=== PATIENT | female | born 1975 | race Caucasian/White ===

== ENCOUNTER 2016-05-23 21:39 | Observation (INO) ==
--- NOTE | 2016-05-23 21:58 | Emergency Department Note ---
Disposition Clinical Impression: Accelerated hypertension Disposition: Admitted As Inpatient Condition: Fair Time of Disposition: 23:28 Chest Pain HPI - General Chief Complaint: ED Chest Pain Stated Complaint: High Blood pressure Time Seen by Provider: 05/23/16 21:55 Source: patient Limitations: no limitations Vital Signs Reviewed: Yes Nursing Notes Reviewed: Yes - History of Present Illness HPI Narrative: 41-year-old female history of hypertension, morbid obesity, takes Norvasc, losartan, Aldactone, diuretic, multiple medications for blood pressure, she presents with elevated blood pressure 240/110. Patient was evaluated at the emergency department yesterday for the same complaints, she also reports chest pain, chest social shortness of breath, currently 4 out of 10, mild frontal headache bilaterally. 5 out of 10. She states that her symptoms have not improved since going home. Her ED workup yesterday included head CT that was negative, CT of chest, lab work up including troponin and EKG that were essentially unremarkable. Patient was discharged home yesterday in stable condition by Dr. Emanuel. Patient essentially states that her hypertension is chronic under control currently. She does have cardiology and nephrology follow -ups, she has been seen by Dr. Mittal in outpatient setting and he is currently working her up for hypertension, primary care physician is Dr. Lucian Phan, she cirrhosis E nephrology and a few more weeks for reevaluation. Earlier no changes in her medical management. Pt complaint: chest pain Onset (ago): day(s) (3) Duration: intermittent Onset: during rest Pain Location: substernal Severity: mild Severity scale (1-10): 2 Pain Radiation: none Improves with: nothing Worsens with: nothing Associated symptoms: Reports: nausea, other (Headache). Denies: vomiting, diaphoresis - Related Data Home Medications Medication Instructions Recorded Confirmed Albuterol Sulfate [Albuterol 1 - 2 puff IH Q4HR PRN 08/31/15 03/28/16 Inhaler] ClonazePAM [Klonopin] 0.5 mg PO BID PRN 08/31/15 03/28/16 Losartan/Hydrochlorothiazide 1 tab PO DAILY 08/31/15 03/28/16 [Hyzaar 100-25 Tablet] Torsemide [Demadex] 10 mg PO DAILY PRN 08/31/15 03/28/16 Amlodipine [Norvasc] 5 mg PO DAILY 02/05/16 03/28/16 Cholecalciferol (Vitamin D3) 10,000 unit PO DAILY 02/05/16 03/28/16 [Vitamin D3] Metoprolol XL (24 HR) Succ [Toprol 200 mg PO DAILY #0 02/05/16 03/28/16 Xl] Spironolactone [Aldactone] 25 mg PO DAILY 02/05/16 03/28/16 Estradiol [Estrace] 1 mg PO DAILY 03/03/16 03/28/16 Previous Rx's Medication Instructions Recorded HydrALAZINE 25 mg PO Q8HR #90 tablet 02/06/16 Allergies Allergy/AdvReac Type Severity Reaction Status Date / Time morphine Allergy Anaphylaxis Verified 03/28/16 13:07 [id number] [From Nubain] Allergy Anaphylaxis Verified 03/28/16 13:07 Trimethobenzamide Allergy Anaphylaxis Verified 03/28/16 13:07 [From Tigan] Review of Systems: A 14 point ROS was obtained and was negative except as per below or as documented in the HPI. Constitutional: Denies: fever, chills, weakness, weight change Eyes: Denies: eye pain, eye discharge, vision change ENT: Denies: ear pain, throat pain, hearing loss, epistaxis, congestion, Cardiovascular: chest pain Denies:, palpitations, dyspnea on exertion, edema, syncope Respiratory: Denies: cough, dyspnea, wheezes, hemoptysis, stridor Gastrointestinal: Denies: abdominal pain, nausea, vomiting. diarrhea, constipation, hematemesis, hematochezia Genitourinary: Denies: urgency, dysuria, frequency, hematuria Musculoskeletal: Denies: back pain, neck pain, arthralgia, myalgia Integumentary: Denies: rash, abrasion, lesions Neurological: headache, Denies: weakness, numbness, paresthesias, confusion, abnormal gait Psychiatric: Denies: anxiety, depression, suicidal thoughts, homicidal thoughts , Endocrine: Denies: fatigue Hematological/Lymphatic: Denies: easy bleeding, easy bruising Allergic/Immunologic: Denies: facial swelling, urticaria All systems ED: reviewed and negative except as stated. Chest Pain PMH - Past Medical History Medical history: Reports: asthma, hypertension Surgical history: Reports: hysterectomy Psychiatric history: Reports: anxiety TALENT MANAGEMENT SPECIALIST history: Reports: no TALENT MANAGEMENT SPECIALIST history - Social History Smoking Status: Never smoker Alcohol use: Reports: none Drug use: Reports: none Physical Exam General: alert and oriented, in NAD, Head: NCAT, no lesions Eyes: sclera anicteric, conjunctiva normal, PERRLA bilaterally, EOMI Bilaterally Ears: normal inspection, external ear wnl Nose: nasal septum nondeviated, sinuses nontender Throat: good dentition, mucous membranes moist Neck: no lymphadenopathy, trachea midline no deviation, no JVD Resp: CTA bilaterally, no resp distress, symmetric chest rise, no wheezes, rales , or rhonchi bilaterally CV: RRR, normal S1 and S2, no m/g/r, Pulses +2 Rad, +2 DP/PT Abdomen: Morbidly obese Soft, NTND, no hepatosplenomegaly, no hernias, Negative Rovsing's sign, Negative Appiah's sign Back: normal inspection, no tenderness to palpation, Negative CVA tenderness bilaterally Neuro: A&O3, CN II-XII grossly intact bilaterally, no motor or sensory deficits bilaterally, gait normal, GCS 15 [id number] Ext: normal inspection, symmetric Active and Passive ROM UE and LE bilaterally , no pedal edema bilaterally Psych: anxious Skin: No rashes, skin warm, dry, intact - General Limitations: no limitations General appearance: alert, in no apparent distress Course Course Narrative: Morbid obese female in no acute distress, she does appear very anxious, her blood pressures to 50 systolic, will try IV hydralazine and will try IV labetalol,. Her blood pressure somewhat under control with 25% reduction, likely the patient will be admitted this hospitalization secondary to refractory hypertension despite medical management workup yesterday which was negative, in the setting of previous admissions for hypertensive emergency, patient does have symptoms with headache and chest pain, EKG is unremarkable lab work is being repeated, will reassess. I did review Dr. Mittal's note, and outpatient setting order Plasmanate metanephrines were negative, he thought that her hypertension was due to CPAP noncompliance and anxiety component, and does improve after she is compliant with her medications. - Reevaluation(s) Reevaluation #1: BP 196/71 HR 70 after labetolol and Hydralazine in ED<stills= symptomatic with GARCIA and CHest pain, admitted to hospitalist service Dr guzmán accepting stable at time of admission. Time: 23:29 Vital Signs Temperature 97.2 F L 05/23/16 21:42 Pulse Rate 74 05/23/16 21:42 Respiratory Rate 18 05/23/16 21:42 Blood Pressure 210/145 05/23/16 21:42 O2 Sat by Pulse Oximetry 100 05/23/16 21:42 Temperature 97.2 F L 05/23/16 21:42 Pulse Rate 79 05/23/16 22:27 Respiratory Rate 16 05/23/16 22:27 Blood Pressure 193/96 05/23/16 22:27 O2 Sat by Pulse Oximetry 100 05/23/16 22:27 Oxygen Delivery Oxygen Delivery Room Air Chest Pain - MDM Narrative Medical decision making narrative: 41-year-old female with accelerated hypertension, admitted to hospitalist service Dr. Guzmán accepting patient's stable condition at time of admission - Differential Diagnosis Likely: fracture of rib, pneumothorax, stable angina, unstable angina pectoris, atypical chest pain, st elevation myocardial infraction - Medical Records Medical records reviewed: Yes I reviewed the patient's medical records. - Lab Data Lab results reviewed: Yes I reviewed the patient's lab results. Result diagrams: 05/23/16 22:06 05/23/16 22:06 Lab Results 05/23/16 05/23/16 05/23/16 Range/Units 22:06 22:06 22:06 WBC 9.1 (4.3-11.1) K/mcL RBC 4.30 (3.82-4.97) M/mcL Hgb 12.1 (11.5-15.4) g/dL Hct 36.2 (35.3-44.9) % MCV 84.2 (83.0-100.0) fL MCH 28.1 (28.0-33.3) pg MCHC 33.4 (31.6-35.5) g/dL RDW 14.6 H (11.5-14.5) % Plt Count 319 (140-400) K/mcL MPV 9.5 (9.4-12.4) fL Immature Gran % 0.5 (0-4) % Seg Neutrophils % 64.5 % Lymphocytes % 25.8 % Monocytes % 5.9 % Eosinophils % 2.6 % Basophils % 0.7 % Neutrophils # 5.9 (1.6-8.9) K/mcL Lymphocytes # 2.4 (0.6-4.6) K/mcL Monocytes # 0.5 (0.0-1.3) K/mcL Eosinophils # 0.2 (0.0-0.6) K/mcL Basophils # 0.1 (0.0-0.2) K/mcL Sodium 138 (136-145) mEq/L Potassium 3.4 L (3.5-4.5) mEq/L Chloride 107 (98-109) mEq/L Carbon Dioxide 23 (19-29) mEq/L BUN 6 L (7-20) mg/dL Creatinine 0.73 (0.57-1.11) mg/dL Est GFR ( Amer) > 60 (> 60) Est GFR (Non-Af Amer) > 60 (> 60) BUN/Creatinine Ratio 8 (6-26) Glucose 92 (70-99) mg/dL Calculated Osmolality 283 (280-300) Calcium 9.1 (8.6-10.8) mg/dL Troponin I 0.00 (0-0.03) ng/mL - Radiology Data Radiology results reviewed: Yes I reviewed the patient's radiology results. Chest X-Ray 05/23/16 21:56 IMPRESSION: 1. No active pulmonary disease. 2. Stable cardiomegaly. D/ / Jose Reed MD / Jose Reed MD Interpreting Provider: Jose Reed MD - EKG Data EKG attestation: Yes I reviewed and interpreted this EKG. EKG shows normal: sinus rhythm (69 bpm) Rate: normal Rhythm: NSR Garibaldi/QRS: normal Q waves: III Interpretation: no acute changes (No acute changes from previous EKG in April 2016, inferior Q-wave is present on the previous EKG.) - Core Measures AMI Core Measures Followed: No Measure Exclusions: not indicated Heart Score - Score History: Slightly Suspicious EKG: Normal Age: Less than 45 Risk Factors: 1-2 risk factors Troponin: Less than normal limit HEART Score Total: 1 Attestation Statement - Attestation Attestation: IBrenden MD, personally performed a history and physical exam of the patient and discussed their management with the resident. I reviewed the resident's note and agree with the documented findings, medical decision making , and plan of care. 41-year-old female with history of severe hypertension presents to the emergency department with a complaint of uncontrolled hypertension. She complains of some chest pain and shortness of breath. She also complains of some headache. She is on multiple medications. She has been admitted to the hospital previously for her blood pressure. She was just seen here yesterday for the same problem. On examination patient is a well-developed obese female in no acute distress. She is alert and oriented 3. There is no cyanosis or diaphoresis. Breath sounds are clear and equal bilaterally. Heart regular rate and rhythm. Abdomen soft and nontender with normal bowel sounds. No gross focal neurological deficits. No acute changes on EKG and unchanged from prior EKG. Chest x-ray shows stable cardiomegaly otherwise no active disease. Labs reviewed. The hospitalist, Dr. Guzmán, was consulted and accepted admission of the patient.
[2016-05-23 22:13] LABS: Basophils # 0.1 K/mcL (0.0-0.2); Basophils % 0.7 %; Eosinophils # 0.2 K/mcL (0.0-0.6); Eosinophils % 2.6 %; Hematocrit 36.2 % (35.3-44.9); Hemoglobin 12.1 g/dL (11.5-15.4); Immature Granulocytes % 0.5 % (0-4); Lymphocytes # 2.4 K/mcL (0.6-4.6); Lymphocytes % 25.8 %; Mean Corpuscular HGB Conc 33.4 g/dL (31.6-35.5); Mean Corpuscular Hemoglobin 28.1 pg (28.0-33.3); Mean Corpuscular Volume 84.2 fL (83.0-100.0); Mean Platelet Volume 9.5 fL (9.4-12.4); Monocytes # 0.5 K/mcL (0.0-1.3); Monocytes % 5.9 %; Neutrophils # 5.9 K/mcL (1.6-8.9); Platelet Count 319 K/mcL (140-400); Red Cell Distribution Width 14.6 % (11.5-14.5); Segmented Neutrophils % 64.5 %
[2016-05-23 22:26] LABS: BUN/Creatinine Ratio 8 (6-26); Blood Urea Nitrogen 6 mg/dL (7-20); Calcium 9.1 mg/dL (8.6-10.8); Carbon Dioxide 23 mEq/L (19-29); Chloride 107 mEq/L (98-109); Glucose 92 mg/dL (70-99); Osmolality,Calculated 283 (280-300); Potassium 3.4 mEq/L (3.5-4.5); Sodium 138 mEq/L (136-145); eGFR For African Americans > 60 (> 60); eGFR For Non-African Americans > 60 (> 60)
[2016-05-23] MEDS ORDERED: *HR* Labetalol 20 MG/4 ML SYRINGE IVP ONE (22:48)
[2016-05-23] MEDS ORDERED: clonazePAM 0.5 MG TABLET PO PRN (23:24)
[2016-05-23] MEDS ORDERED: Torsemide 20 MG TABLET PO PRN (23:24)
[2016-05-23] MEDS ORDERED: Acetaminophen 325 MG TABLET PO PRN (23:29)
[2016-05-23] MEDS ORDERED: Ondansetron 4 MG/2 ML VIAL IVP PRN (23:29)
[2016-05-23] MEDS ORDERED: *HR* OxyCODONE Immed Rel 5 MG TABLET PO PRN (23:29)
[2016-05-23] MEDS ORDERED: Benzonatate 100 MG CAPSULE PO PRN (23:29)
[2016-05-23] MEDS ORDERED: *HR* Morphine 2 MG/ML SYRINGE IVP PRN (23:29)
[2016-05-23] MEDS ORDERED: Naloxone 0.4 MG/ML INJ IVP PRN (23:29)
[2016-05-23] MEDS ORDERED: Ipratropium/Albuterol Neb 3 ML IH PRN (23:29)
[2016-05-23] MEDS ORDERED: Melatonin 3 MG TABLET PO SCH (23:30)
[2016-05-23] MEDS ORDERED: 0.9 % Sodium Chloride 1,000 ML IVC SCH (23:30)
[2016-05-24] MEDS ORDERED: hydrALAZINE 25 MG TABLET PO SCH
[2016-05-24] MEDS ORDERED: amLODIPine 5 MG TABLET PO STA (00:12)
[2016-05-24] MEDS ORDERED: Potassium Chloride Elixir 20 MEQ/15 ML UDC PO STA (00:12)
[2016-05-24] MEDS: hydrALAZINE 25 MG TABLET PO SCH ×2 (00:45→09:14)
[2016-05-24 00:51] LABS: Activated Partial Thrombo Time 30.4 Seconds (26.0-36.0)
[2016-05-24 01:00] LABS: Magnesium 2.1 mg/dL (1.6-2.6); Phosphorous 2.4 mg/dL (2.3-4.7)
[2016-05-24 01:05] LABS: Alanine Aminotransferase 18 Units/L (0-55); Albumin 3.7 g/dL (3.5-5.0); Alkaline Phosphatase 96 Units/L (38-126); Aspartate Amino Transferase 22 Units/L (5-34); BUN/Creatinine Ratio 8 (6-26); Bilirubin,Total 0.6 mg/dL (0.2-1.2); Blood Urea Nitrogen 6 mg/dL (7-20); Calcium 9.1 mg/dL (8.6-10.8); Carbon Dioxide 22 mEq/L (19-29); Chloride 107 mEq/L (98-109); Chol/HDL Ratio 4.4 (0-4.9); Cholesterol 151 mg/dL (< 200); Globulin 3.7 g/dL (2.4-3.5); Glucose 92 mg/dL (70-99); HDL Cholesterol 34 mg/dL (40-59); LDL Cholesterol,Calculated 84 mg/dL (0-99); Osmolality,Calculated 283 (280-300); Potassium 3.3 mEq/L (3.5-4.5); Sodium 138 mEq/L (136-145); Total Protein 7.4 g/dL (6.0-8.3); Triglycerides 167 mg/dL (< 150); eGFR For African Americans > 60 (> 60); eGFR For Non-African Americans > 60 (> 60)
--- NOTE | 2016-05-24 01:39 | Internal Med History&Physical ---
Date of Encounter: 05/23/16 Time of Encounter: 23:30 Assessment and Plan (1) Cephalgia Current visit: Yes Status: Acute . Qualifiers: Headache type: other vascular headache Qualified Code(s): G44.1 - Vascular headache, not elsewhere classified (2) Chest pain with low risk of acute coronary syndrome Current visit: Yes Status: Acute . (3) Chest pain, rule out acute myocardial infarction Current visit: Yes Status: Acute . (4) Hypertensive urgency Current visit: Yes Status: Acute . (5) Hypokalemia due to loss of potassium Current visit: Yes Status: Acute . (6) Non-cardiac chest pain Current visit: Yes Status: Acute . (7) Pulmonary hypertension Current visit: Yes Status: Acute . (8) Generalized anxiety disorder Current visit: Yes Status: Chronic . (9) Hypoventilation associated with obesity Current visit: Yes Status: Chronic . (10) Morbid obesity with BMI of 50.0-59.9, adult Current visit: Yes Status: Chronic . (11) Obstructive sleep apnea of adult Current visit: Yes Status: Chronic . (12) Poorly-controlled hypertension Current visit: Yes Status: Chronic . (13) Noncompliance with CPAP treatment Current visit: Yes Status: Chronic . (14) Anxiety about health Current visit: Yes Status: Acute . (15) Hypertensive cardiomyopathy Current visit: Yes Status: Chronic . Qualifiers: Heart failure presence: without heart failure Qualified Code(s): I11.9 - Hypertensive heart disease without heart failure Internal Medicine - H&P: HPI Chief complaint: Chest pain Admitted From: Emergency Dept Plans for Post Hospital Care: Home History of present illness: Ms. Dewitt is a 41 year old female with history of poorly controlled chronic hypertension (frequent episodes of hypertensive urgency),osteoarthritis, osteopenia, vitamin D deficiency, generalized anxiety disorder, asthma, Severe ELIA (Cpap noncompliance), morbid obesity, nonsmoker. The patient was visited and interviewed and examined. Patient is admitted to [facility] via the emergency department when she presents in company of family with complaints of chest pain. Upon presentation she was found to have an elevated blood pressure of 240/110. Patient had been evaluated in the emergency room the day prior to this presentation with the same complaints. During that time she completed a CT of the head and CTA of the chest in response to her symptoms of intractable headache and chest pain associated with a positive d-dimer. These studies were benign. As with previous presentations to the ED and admissions the patient was treated for her accelerated hypertension and discharged home only to return. Then as well as now she reports compliance with her prescribed medications which includes losartan, hydrochlorothiazide, Demadex, Norvasc, metoprolol XL, spironolactone. She reports a long-standing history of refractory and poorly controlled hypertension. Yesterday as well as today she reported her chest discomfort at shortness of breath that he had a 2-5/10 in severity associated with some shortness of breath, nausea and frontal headache. Reports that in spite of her home treatments and the treatments that have been worked given in the emergency department yesterday of her symptoms continued. The chronicity of the patient' s presentation with the same complaints and professed refractory hypertension is concerning. Strong question occurs of noncompliance to prescribed therapy and medical treatment recommendations. She acknowledges personal stressors especially as relates to her 17-year-old teenage daughters recently received acceptance letters to college. She acknowledges increased personal demands surrounding this. Significant dietary recreational prescribed treatment indiscretions. Findings in the ED: Temperature 97.2 pulse 74 respirations 18 and BP 200-240/110-145 O2 saturation 90% room air. EKG normal sinus rhythm (69) . Q-wave in lead 3. No acute ischemic changes. Portable chest x-ray shows no acute or active cardiopulmonary process. Stable cardiomegaly. No acute infiltrates and effusions or pneumothoraces. ( 05/22/2016 -CTA of chest with no findings of pulmonary embolism or thoracic dissection or aneurysm. Mild cardiomegaly with moderate concentric left ventricular hypertrophy. Mildly dilated pulmonary arteries, an indeterminate finding that can be seen with pulmonary hypertension. Mosaic attenuation in both lungs potentially due to pulmonary edema, small vessel disease or small airway disease. Evidence of granulomatous disease with pulmonary and splenic calcifications. Submucosal fat in the stomach suggesting prior inflammatory changes. No suspicious acute fractures or osseous lesions or adenopathy. CT of head demonstrates no acute intracranial abnormalities. Visualized paranasal sinuses and mastoid air cells clear. No acute intracranial intracranial/intracerebral hemorrhage collection infarct or mass effect.). Preliminary impression suggests poorly controlled accelerated hypertension/hypertensive urgency with somatic complaints. Repetitive concern raises question of compliance with medical treatment and medical recommendations and management of chronic hypertension. Hospitalized episodes for this diagnosis has shown predictable response to reintroduction of antihypertensive therapies within a short term of hospital stay. Evaluations have been negative for catecholamines and metanephrine and VMA elevations, renal artery stenosis, ischemic heart disease, severe PAD, CTD and progressive CKD. However given the severity of the blood pressure trending the patient is at the continued risk for further acute clinical decline and morbidity in this presentation against a background of her defined comorbidities. Workup and treatment will progress comprehensively Cumulative laboratory and radiographic data base was reviewed, considered and discussed. Pertinent ancillary medical records including ECW and PCI documentation, when available, was reviewed and considered. Given the patient's presenting concerns, past medical history, clinical findings and symptoms, she is admitted at this time will undergo further evaluation and disposition. Orders were written as per the computerized physician customs and border protection inspector system.......................................................................... .................... Consultative opinions will be sought as clinical circumstances justify. Pain management needs will be addressed. Laboratory radiographic data base will be updated as appropriate. Studies include:cardiac injury panel, BNP, metabolic and hematologic panel, magnesium, phosphorus, ionized calcium, thyroid panel, lipid profile, A1c, C-peptide, CRP, sedimentation rate, U/A, blood gas, UDS, lactic acid, serologies, etc. Precautions: Aspiration, fall, delirium protocol/surveillance initiated. Telemetry with continuous hemodynamic monitoring and pulse oximetry initiated. Orthostatic vital signs. Special studies: CT chest, chest x-ray, telemetry, EKG, bladder scan, postvoid residual. Pulmonary toilet: Incentive spirometry. When necessary aerosol bronchodilator, mucolytic, antitussive. When necessary supplemental oxygen. Corticosteroid therapy when necessary. CPAP/BiPAP supplemental oxygen delivery employed. Aerosol Mucomyst therapy.. Fluid and electrolyte repletion efforts will proceed. Careful attention to fluid balance and renal recovery will be emphasized. Avoidance of nephrotoxic exposure and adverse drug drug interaction in the setting of impaired renal function will be monitored closely. Acute coronary syndrome protocol/surveillance initiated. Accelerated hypertension protocols/surveillance initiated. Low-sodium/cardiac/ no added salt diet restriction. Reduction of metabolic and electrolyte and acid -base deficits. Hydration therapy. Avoidance of supplemental stimulants/ therapies. Introduce scheduled and as needed antihypertensive therapies as per blood pressure trending. Graduated, low impact, weight reduction exercise program recommended. Avoidance of excessive dependence on nonsteroidal anti- inflammatory drugs. Input and output measurements and daily weights. DVT and PUD prophylaxis initiated: PPI therapy, intermittent pneumatic cuffs. Subcutaneous heparin/lovenox. Early ambulation will be encouraged. Immunization updates recommended. Influenza and pneumococcal vaccinations as part of ongoing preventative healthcare recommendations strongly recommended. Smoking cessation counseling briefly addressed. Patient is a nonsmoker. Advanced care directive discussion briefly addressed. Patient does not declare any healthcare restrictions at this time. Cardiovascular risk appraisal and cardiovascular risk reduction efforts will be emphasized. Physical and occupational therapy may be consulted to evaluate/assess patient's functional capacity and progress mobility as circumstances justify. Nutrition/diabetes education counseling may be considered as circumstances justify. Outpatient medication schedules will be reviewed confirmed and facilitated as appropriate. Reconciliation of home treatments including adjustments, substitutions and reintroduction into the treatment regimen will address necessary maintenance therapies for chronic pre-existing medical conditions. Plan of care has been reviewed and discussed in detail with the patient. Questions addressed. Hospital course is dependent on clinical findings, treatment response and potential consultative interventions. Patient is at risk for further acute clinical decline and morbidity due to her presenting chief complaints and comorbidities. Condition is serious. Prognosis is cautiously optimistic. CODE STATUS is full. Past Med Surg Social Fam HX - Past Medical History Source: old records reviewed Medical history: arthritis, asthma, cardiomyopathy (Echocardiogram revealed LVEF of 65% with moderate concentric LVH. Moderate left ventricular diastolic dysfunction. Echocardiogram 2016), COPD (Obstructive sleep apnea), GERD, hyperlipidemia, hypertension, osteoporosis (Deficiency), peripheral artery disease (Bilateral carotid systems have nonstenotic, smooth heterogeneous plaque. Carotid imaging 2016.), other Psychiatric history: anxiety, other - Past Surgical History Surgical History: hysterectomy, VIOLA/BSO, other - Social History Smoking Status: Never smoker Smokeless Tobacco Status: No Alcohol use: none Drug use: none Occupational status: unemployed, other Current living situation: With Family Activity Level: Independent ambulation, Mostly sedentary Recent Out of Country Travel Within the Last 8 Weeks: No Exposure or Possible Exposure to Illness During Travel: No - Family History Mother Adopted: No Living Status: Still Living Hx Family Respiratory Disorders: Yes (Asthma) Father Adopted: No Living Status: Hx Family Cardiac Disorders: Yes (Father had "heart attack" at his 35 yo) Internal Medicine - H&P: Meds Albuterol Sulfate [Albuterol Inhaler] 1 - 2 puff IH Q4HR PRN 08/31/15 [History] ClonazePAM [Klonopin] 0.5 mg PO BID PRN 08/31/15 [History] Losartan/Hydrochlorothiazide [Hyzaar 100-25 Tablet] 1 tab PO DAILY 08/31/15 [ History] Torsemide [Demadex] 10 mg PO DAILY PRN 08/31/15 [History] Amlodipine [Norvasc] 5 mg PO DAILY 02/05/16 [History] Cholecalciferol (Vitamin D3) [Vitamin D3] 10,000 unit PO DAILY 02/05/16 [History ] Metoprolol XL (24 HR) Succ [Toprol Xl] 200 mg PO DAILY #0 02/05/16 [History] Spironolactone [Aldactone] 25 mg PO DAILY 02/05/16 [History] HydrALAZINE 25 mg PO Q8HR #90 tablet 02/06/16 [Rx] Estradiol [Estrace] 1 mg PO DAILY 03/03/16 [History] Allergies morphine Allergy (Verified 03/28/16 13:07) Anaphylaxis nalbuphine [From Nubain] Allergy (Verified 03/28/16 13:07) Anaphylaxis Trimethobenzamide [From Tigan] Allergy (Verified 03/28/16 13:07) Anaphylaxis All Systems PM: A 10-system review of systems was performed and is negative for pertinent findings except as documented above in the HPI. - Constitutional Constitutional: as per HPI, no chills, no fever(s), no night sweats - EENT Eyes: as per HPI, no change in vision, no discharge, no pain, no photophobia Ears: as per HPI, no ear discharge, no ear pain, no tinnitus Nose, mouth and throat: as per HPI, no dysphagia, no nasal discharge, no neck pain, no sore throat - Cardiovascular Cardiovascular ROS IM: as per HPI, chest pain, no claudication, no diaphoresis, no dyspnea, no lightheadedness, no palpitations, no syncope - Respiratory Respiratory: as per HPI, no cough, no dyspnea, no wheezing, no excessive phlegm production - Gastrointestinal Gastrointestinal: as per HPI, no abdominal pain, no diarrhea, no hematemesis, no hematochezia, no melena, no nausea, no vomiting - Genitourinary Genitourinary: as per HPI, no change in urinary stream, no dysuria, no flank pain, no hematuria Menstruation: as per HPI, post hysterectomy, other - Musculoskeletal Musculoskeletal ROS IM: as per HPI, no numbness, no tingling - Integumentary Integumentary IM: as per HPI, no rash, no unusual bruising - Neurological Neurological ROS: as per HPI, headache(s), other, no confusion, no convulsions, no focal weakness, no numbness, no tingling, no tremor(s) - Psychiatric Psychiatric: as per HPI - Endocrine Endocrine IM: as per HPI - Hematologic/Lymphatic Hematologic/Lymphatic: as per HPI, no easy bruising - Allergic/Immunologic Allergic/Immunologic: as per HPI - Constitutional Vitals: Temp Pulse Resp BP Pulse Ox 0 F L 74 16 201/107 98 05/23/16 23:46 05/23/16 23:30 05/23/16 23:46 05/23/16 23:46 05/23/16 23:30 General appearance: Present: cooperative, mild distress, A&O X 3, morbidly obese , answers questions appropriately - Head Head exam: Present: atraumatic, normal inspection, normocephalic - Eye Eye exam: Present: EOMI, PERRL, conjuntiva pink, sclera anicteric Pupils: Present: normal accommodation - ENT ENT exam: Present: mucous membranes moist, normal external ear exam, normal oropharynx - Neck Neck exam general surgery: Present: full ROM, supple, trachea midline. Absent: lymphadenopathy, tenderness, nuchal rigidity - Respiratory Respiratory exam: Present: chest wall tenderness, decreased breath sounds, CTAB. Absent: accessory muscle use, rales, rhonchi, stridor, wheezes - Cardiovascular Cardiovascular exam: Present: distant heart sounds, RRR, +S1, +S2. Absent: diastolic murmur, gallop, rubs, systolic murmur - GI/Abdominal GI/Abdominal exam: Present: normal bowel sounds, soft, no peritoneal signs. Absent: distended, tenderness - Extremities Exam Extremities exam: Present: full ROM, warm, radial pulses palpable and symetrical. Absent: calf tenderness, cyanotic, pedal edema - Neurological Exam Neurological exam: Present: alert, CN II-XII intact, oriented X3, no focal deficits. Absent: pronater drift, facial droop, speech deficit - Expanded Neurological Exam Neurological exam expanded: Present: protecting the airway. Absent: ataxia, expressive aphasia, receptive aphasia Patient oriented to: Present: person, place, time Speech: Present: fluid speech Coma Scale Eye Opening: Spontaneous Coma Scale Motor Response: Obeys Commands Coma Scale Verbal Response: Oriented Coma Scale Total: 15 - Psychiatric Psychiatric exam: Present: normal affect, normal mood - Skin Skin exam: Present: dry, intact, warm. Absent: petechiae, rash, urticaria, vesicles Internal Med - H&P Results - Labs CBC & Chem 7: 05/23/16 22:06 05/24/16 00:19 Labs: BMP 05/24/16 00:19 Sodium 138 Potassium 3.3 L Chloride 107 Carbon Dioxide 22 BUN 6 L Creatinine 0.71 Glucose 92 Calcium 9.1 Cardiac Enzymes 05/24/16 Range/Units 00:19 Troponin I 0.01 (0-0.03) ng/mL Liver Function 05/24/16 Range/Units 00:19 Total Bilirubin 0.6 (0.2-1.2) mg/dL AST 22 (5-34) Units/L ALT 18 (0-55) Units/L Alkaline Phosphatase 96 (38-126) Units/L Albumin 3.7 (3.5-5.0) g/dL - Impressions Vital Signs Temp Pulse Resp BP Pulse Ox 05/23/16 23:46 0 F L 16 201/107 05/23/16 23:30 97.7 F 74 20 194/122 98 05/23/16 22:27 79 16 193/96 100 05/23/16 21:53 238/141 05/23/16 21:42 97.2 F L 74 18 210/145 100 Intake and Output 05/23/16 05/23/16 05/24/16 15:59 23:59 07:59 Other: Weight 130.635 kg Short CBC 05/23/16 Range/Units 22:06 WBC 9.1 (4.3-11.1) K/mcL Hgb 12.1 (11.5-15.4) g/dL Hct 36.2 (35.3-44.9) % Plt Count 319 (140-400) K/mcL Neutrophils # 5.9 (1.6-8.9) K/mcL BMP 05/24/16 05/23/16 Range/Units 00:19 22:06 Sodium 138 138 (136-145) mEq/L Potassium 3.3 L 3.4 L (3.5-4.5) mEq/L Chloride 107 107 (98-109) mEq/L Carbon Dioxide 22 23 (19-29) mEq/L BUN 6 L 6 L (7-20) mg/dL Creatinine 0.71 0.73 (0.57-1.11) mg/dL Glucose 92 92 (70-99) mg/dL Calcium 9.1 9.1 (8.6-10.8) mg/dL Cardiac Enzymes 05/24/16 05/23/16 Range/Units 00:19 22:06 Troponin I 0.01 0.00 (0-0.03) ng/mL Liver Function 05/24/16 Range/Units 00:19 Total Bilirubin 0.6 (0.2-1.2) mg/dL AST 22 (5-34) Units/L ALT 18 (0-55) Units/L Alkaline Phosphatase 96 (38-126) Units/L Albumin 3.7 (3.5-5.0) g/dL Abnormal lab results RDW 14.6 % (11.5-14.5) H 05/23/16 22:06 Potassium 3.3 mEq/L (3.5-4.5) L 05/24/16 00:19 BUN 6 mg/dL (7-20) L 05/24/16 00:19 Globulin 3.7 g/dL (2.4-3.5) H 05/24/16 00:19 Albumin/Globulin Ratio 1.0 (1.1-2.2) L 05/24/16 00:19 Triglycerides 167 mg/dL (< 150) H 05/24/16 00:19 VLDL Cholesterol, Calc 33 mg/dL (< 31) H 05/24/16 00:19 HDL Cholesterol 34 mg/dL (40-59) L 05/24/16 00:19 Allergies Allergy/AdvReac Type Severity Reaction Status Date / Time morphine Allergy Anaphylaxis Verified 03/28/16 13:07 nalbuphine [From Nubain] Allergy Anaphylaxis Verified 03/28/16 13:07 Trimethobenzamide Allergy Anaphylaxis Verified 03/28/16 13:07 [From [facility]] Laboratory Results WBC 9.1 K/mcL (4.3-11.1) 05/23/16 22:06 RBC 4.30 M/mcL (3.82-4.97) 05/23/16 22:06 Hgb 12.1 g/dL (11.5-15.4) 05/23/16 22:06 Hct 36.2 % (35.3-44.9) 05/23/16 22:06 MCV 84.2 fL (83.0-100.0) 05/23/16 22:06 MCH 28.1 pg (28.0-33.3) 05/23/16 22:06 MCHC 33.4 g/dL (31.6-35.5) 05/23/16 22:06 RDW 14.6 % (11.5-14.5) H 05/23/16 22:06 Plt Count 319 K/mcL (140-400) 05/23/16 22:06 MPV 9.5 fL (9.4-12.4) 05/23/16 22:06 Immature Gran % 0.5 % (0-4) 05/23/16 22:06 Seg Neutrophils % 64.5 % 05/23/16 22:06 Lymphocytes % 25.8 % 05/23/16 22:06 Monocytes % 5.9 % 05/23/16 22:06 Eosinophils % 2.6 % 05/23/16 22:06 Basophils % 0.7 % 05/23/16 22:06 Neutrophils # 5.9 K/mcL (1.6-8.9) 05/23/16 22:06 Lymphocytes # 2.4 K/mcL (0.6-4.6) 05/23/16 22:06 Monocytes # 0.5 K/mcL (0.0-1.3) 05/23/16 22:06 Eosinophils # 0.2 K/mcL (0.0-0.6) 05/23/16 22:06 Basophils # 0.1 K/mcL (0.0-0.2) 05/23/16 22:06 PT 11.0 Seconds (9.4-12.1) 05/24/16 00:19 INR 1.0 05/24/16 00: APTT 30.4 Seconds (26.0-36.0) 05/24/16 00:19 Sodium 138 mEq/L (136-145) 05/24/16 00:19 Potassium 3.3 mEq/L (3.5-4.5) L 05/24/16 00: Chloride 107 mEq/L (98-109) 05/24/16 00: Carbon Dioxide 22 mEq/L (19-29) 05/24/16 00:19 BUN 6 mg/dL (7-20) L 05/24/16 00:19 Creatinine 0.71 mg/dL (0.57-1.11) 05/24/16 00:19 Est GFR ( Amer) > 60 (> 60) 05/24/16 00: Est GFR (Non-Af Amer) > 60 (> 60) 05/24/16 00:19 BUN/Creatinine Ratio 8 (6-26) 05/24/16 00: Glucose 92 mg/dL (70-99) 05/24/16 00: Calculated Osmolality 283 (280-300) 05/24/16 00: Calcium 9.1 mg/dL (8.6-10.8) 05/24/16 00:19 Phosphorus 2.4 mg/dL (2.3-4.7) 05/24/16 00: Magnesium 2.1 mg/dL (1.6-2.6) 05/24/16 00:19 Total Bilirubin 0.6 mg/dL (0.2-1.2) 05/24/16 00: AST 22 Units/L (5-34) 05/24/16: ALT 18 Units/L (0-55) 05/24/16 00:19 Alkaline Phosphatase 96 Units/L (38-126) 05/24/16 00:19 Troponin I 0.01 ng/mL (0-0.03) 05/24/16 00:19 Serum Total Protein 7.4 g/dL (6.0-8.3) 05/24/16 00:19 Albumin 3.7 g/dL (3.5-5.0) 05/24/16 00:19 Globulin 3.7 g/dL (2.4-3.5) H 05/24/16 00:19 Albumin/Globulin Ratio 1.0 (1.1-2.2) L 05/24/16 00:19 Triglycerides 167 mg/dL (< 150) H 05/24/16 00:19 Cholesterol 151 mg/dL (< 200) 05/24/16 00:19 LDL Cholesterol, Calc 84 mg/dL (0-99) 05/24/16 00:19 VLDL Cholesterol, Calc 33 mg/dL (< 31) H 05/24/16 00:19 HDL Cholesterol 34 mg/dL (40-59) L 05/24/16 00:19 Cholesterol/HDL Ratio 4.4 (0-4.9) 05/24/16 00:19 Free T4 0.95 ng/dl (0.70-1.48) 05/24/16 00:19 Impressions Chest X-Ray 05/23/16 21:56 IMPRESSION: 1. No active pulmonary disease. 2. Stable cardiomegaly. D/ / Jose Reed MD / Jose Reed MD Interpreting Provider: Jose Reed MD
[2016-05-24 04:06] LABS: Bilirubin,Urine Negative (Negative); Blood,Urine Negative (Negative); Clarity,Urine Clear (Clear); Color,Urine Yellow (Yellow); Glucose,Urine (UA) Normal (Normal); Ketones,Urine Negative (Negative); Leukocyte Esterase,Urine Negative (Negative); Nitrite,Urine Negative (Negative); Protein,Urine Negative (Neg-Trace); Specific Gravity,Urine 1.006 (1.010-1.025); Urobilinogen,Urine Normal (Normal)
[2016-05-24 04:11] LABS: Amphetamine Screen,Urine Negative ng/mL (Cutoff=1000); Barbiturate Screen,Urine Negative ng/mL (Cutoff=200); Benzodiazepines Screen,Urine Negative ng/mL (Cutoff=200); Cannabinoid Screen,Urine Negative ng/mL (Cutoff = 50); Cocaine Screen,Urine Negative ng/mL (Cutoff= 300); Opiate Screen,Urine Negative ng/mL (Cutoff=300); Phencyclidine Screen,Urine Negative ng/mL (Cutoff=25)
[2016-05-24] MEDS ORDERED: Losartan/HCTZ 50-12.5 TABLET PO SCH (09:00)
[2016-05-24] MEDS ORDERED: amLODIPine 5 MG TABLET PO SCH ×2 (09:00)
[2016-05-24] MEDS ORDERED: Metoprolol XL (24 HR) Succ 50 MG TAB.ER.24H PO SCH (09:00)
[2016-05-24] MEDS ORDERED: Spironolactone 25 MG TABLET PO SCH (09:00)
[2016-05-24] MEDS ORDERED: Potassium Chloride Elixir 20 MEQ/15 ML UDC PO ONE (10:01)
[2016-05-24 11:36] VITALS: BP 155/100
--- NOTE | 2016-05-24 12:04 | Discharge Summary ---
Date of Encounter: 05/24/16 Time of Encounter: 10:30 - Discharge Diagnosis (1) Hypertensive urgency Priority: Primary Status: Acute (2) Generalized anxiety disorder Priority: Secondary Status: Chronic (3) Obstructive sleep apnea of adult Priority: Secondary Status: Chronic (4) Poorly-controlled hypertension Priority: Secondary Status: Chronic (5) Hypokalemia Priority: Primary Status: Chronic (6) Asthma Priority: Secondary Status: Chronic Qualifiers: Asthma severity: unspecified severity Asthma complication type: uncomplicated Qualified Code(s): J45.909 - Unspecified asthma, uncomplicated (7) Morbid obesity with BMI of 40.0-44.9, adult Priority: Secondary Status: Chronic (8) Osteoarthritis Priority: Secondary Status: Chronic Qualifiers: Osteoarthritis location: unspecified site Osteoarthritis type: unspecified Qualified Code(s): M19.90 - Unspecified osteoarthritis, unspecified site - Discharge Medications Prescriptions: Potassium Chloride [K-Tab ER] 10 meq PO DAILY #30 tablet.er Home Medications: Albuterol Sulfate [Albuterol Inhaler] 1 - 2 puff IH Q4HR PRN 08/31/15 [History] ClonazePAM [Klonopin] 0.5 mg PO BID PRN 08/31/15 [History] Losartan/Hydrochlorothiazide [Hyzaar 100-25 Tablet] 1 tab PO DAILY 08/31/15 [ History] Torsemide [Demadex] 10 mg PO DAILY PRN 08/31/15 [History] Amlodipine [Norvasc] 10 mg PO DAILY 02/05/16 [History] Cholecalciferol (Vitamin D3) [Vitamin D3] 10,000 unit PO DAILY 02/05/16 [History ] Metoprolol XL (24 HR) Succ [Toprol Xl] 200 mg PO DAILY #0 02/05/16 [History] Spironolactone [Aldactone] 25 mg PO DAILY 02/05/16 [History] HydrALAZINE 25 mg PO Q8HR #90 tablet 02/06/16 [Rx] Estradiol [Estrace] 1 mg PO DAILY 03/03/16 [History] Potassium Chloride [K-Tab ER] 10 meq PO DAILY #30 tablet.er 05/24/16 [Rx] Allergies/Adverse Reactions: Allergies morphine Allergy (Verified 05/24/16 09:42) Anaphylaxis nalbuphine [From Nubain] Allergy (Verified 05/24/16 09:42) Anaphylaxis Trimethobenzamide [From Tigan] Allergy (Verified 05/24/16 09:42) Anaphylaxis Date of admission: 05/23/16 23:27 Primary care physician: Hayden Phan MD Consults: 05/24/16 10:03 Consult to Veneer Patcher [CONS] Routine Reason for SW Consult: Noncompliance to BP meds, anxiety Discharging clinician: Sophia Nuñez Anticipated date of discharge: 05/24/16 - Patient Status Disposition: Home, Self-Care Condition: Fair Functional capacity at discharge: independent ambulation Overall status at discharge: patient is back to baseline - Discharge Instructions Instructions: Chronic Hypertension (DC) Follow Up With: Hayden Phan MD [Primary Care Provider] - 06/01/16 2:00 pm (Please follow up as schedule!!!) Additional Instructions: Continue f/up with Nephrology and Cardiology as scheduled previously; - Diet and Activity Activity: resume usual activities as tolerated Diet: low fat, low cholesterol, low salt diet Hospital course: Ms. Dewitt is a 41 year old female with h/o- poorly controlled HTN, admitted with chest pain, headache and uncontrolled HTN. She received a dose of IV Labetalol and Hydralazine in the ER after which she has been restarted on her home medication regimen for HTN, and her BP remained stable since admission. Her symptoms are currently resolved and she feels well. Patient has had multiple hospitalizations for this problem and she has a questionable compliance to her meds; she does follow with Nephrology, Cardiology and PCP as outpatient, and is being worked up for possible secondary HTN according to her. She is noted to have chronic hypokalemia and is being discharged on potassium supplements at this time. Discussed with geriatric social worker and she is not eligible for visiting nurse services due to lack of insurance. She is otherwise medically stable for discharge. - Time Spent with Patient Total time spent providing and/or coordinating discharge services: Greater than 30 minutes (40 min) - Constitutional Vitals: Temp Pulse Resp BP Pulse Ox 97.5 F L 71 16 155/100 96 05/24/16 11:35 05/24/16 11:35 05/24/16 11:35 05/24/16 11:35 05/24/16 11:35 General appearance: Present: A&O X 3, morbidly obese, answers questions appropriately - Respiratory Respiratory exam: Present: CTAB. Absent: accessory muscle use, rales, rhonchi, wheezes - Cardiovascular Cardiovascular exam: Present: RRR, +S1, +S2. Absent: diastolic murmur, gallop, rubs, systolic murmur - VTE Documentation of Mechanical Device: Graduated compression elastic hosiery
--- NOTE | 2016-05-24 15:07 | Electrocardiograph Report ---
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
== END 2016-05-24 12:28 | disposition home or self-care (01) ==
LOC: 2ANU 21:39 → EMEROO 21:39 → 2ANU 23:49
PROVIDERS: ADMIT Internal Medicine; ATTEND Internal Medicine

== ENCOUNTER 2016-12-11 00:02 | Observation (INO) ==
[2016-12-11] MEDS ORDERED: Aspirin 81 MG TAB.CHEW PO STA (00:25)
--- NOTE | 2016-12-11 00:26 | Emergency Department Note ---
Disposition Clinical Impression: Chest pain Qualifiers: Chest pain type: unspecified Qualified Code(s): R07.9 - Chest pain, unspecified Disposition: Admitted As Inpatient Condition: Fair Time of Disposition: 02:29 Chest Pain HPI - General Chief Complaint: ED Chest Pain Stated Complaint: "CP/High BP/Dizzy" Time Seen by Provider: 12/11/16 00:13 Source: patient Mode of arrival: ambulatory Limitations: no limitations Vital Signs Reviewed: Yes Nursing Notes Reviewed: Yes - History of Present Illness HPI Narrative: 41-year-old female presents with chest pain retrosternal about 30 minutes prior to arrival, history of hypertension, morbid obesity, patient states that she has been having intermittent episodes of chest pain. And she had a heart catheter in January 2016 that was clear. Patient denies smoking or diabetes, does have a family history of heart attack. She states her chest pain is crushing 8 out of 10, radiating into her back. She stated that she was eating and had a drink of pain at a restaurant, and she started feeling short of breath and nauseated, she sat in the car and hyperventilated and nearly syncopized. She denies fever or chills, recent weight loss, denies nausea vomiting diarrhea constipation, dysuria Pt complaint: chest pain Onset (ago): minute(s) (30) Duration: intermittent Pain Location: substernal Severity: moderate Severity scale (1-10): 7 Quality: aching, heaviness Pain Radiation: back Improves with: nothing Worsens with: nothing Associated symptoms: Reports: nausea, dyspnea. Denies: vomiting, diaphoresis - Related Data Home Medications Medication Instructions Recorded Confirmed Albuterol Sulfate [Albuterol 1 - 2 puff IH Q4HR PRN 08/31/15 09/01/16 Inhaler] Losartan/Hydrochlorothiazide 1 tab PO DAILY 08/31/15 09/01/16 [Hyzaar 100-25 Tablet] Torsemide [Demadex] 10 mg PO DAILY PRN 08/31/15 09/01/16 clonazePAM [Klonopin] 0.5 mg PO BID PRN 08/31/15 09/01/16 Cholecalciferol (Vitamin D3) 10,000 unit PO DAILY 02/05/16 09/01/16 [Vitamin D3] Metoprolol XL (24 HR) Succ [Toprol 200 mg PO DAILY #0 02/05/16 09/01/16 Xl] Spironolactone [Aldactone] 25 mg PO DAILY 02/05/16 09/01/16 amLODIPine [Norvasc] 10 mg PO DAILY 02/05/16 09/01/16 Estradiol [Estrace] 1 mg PO DAILY 03/03/16 09/01/16 cloNIDine HCl [Clonidine HCl] 0.2 mg PO 1-3XD 08/22/16 09/01/16 Previous Rx's Medication Instructions Recorded hydrALAZINE [HydrALAZINE] 25 mg PO Q8HR #90 tablet 02/06/16 Potassium Chloride [K-Tab ER] 10 meq PO DAILY #30 tablet.er 05/24/16 Allergies Allergy/AdvReac Type Severity Reaction Status Date / Time morphine Allergy Anaphylaxis Verified 09/01/16 19:53 nalbuphine [From Nubain] Allergy Anaphylaxis Verified 09/01/16 19:53 Trimethobenzamide Allergy Anaphylaxis Verified 09/01/16 19:53 [From Tigan] All systems ED: reviewed and negative except as stated. Review of Systems: As Per HPI Constitutional: Denies: fever, chills Cardiovascular: Reports: as per HPI, chest pain Respiratory: Reports: dyspnea. Denies: cough Gastrointestinal: Reports: as per HPI, nausea. 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: Reports: non-contributory - Social History Smoking Status: Never smoker Alcohol use: Reports: none, rarely Drug use: Reports: none Physical Exam Constitutional: obese female appears very uncomfortable, elevated blood pressure systolic 190 Eyes: PERRLA, sclera anicteric ENT & Mouth: NCAT, normal external ears bilaterally, MMM Neck: normal inspection, neck is supple Resp: CTA bilaterally, diminished at the bases CV: RRR, no m/g/r GI: normal inspection, soft, no guarding or rigidity Back: normal inspection, no tenderness to palpation Neuro: A&O3, CNII-XII grossly intact, HOPE MSK: no gross deformities, normal ROM UE and LE Skin: on limited exam, skin intact with no rashes or lesions - General Limitations: no limitations General appearance: alert, in no apparent distress Course Course Narrative: 41-year-old female with chest pain arrest 30 minutes prior to arrival, risk factors of hypertension, obesity family history, recent negative catheter will still get a troponin aspirin nitroglycerin trial, EKG shows some ST depressions in leads V5 and V6. - Reevaluation(s) Reevaluation #1: Admitted to Dr. Vivar, patient with a negative troponin EKG with subtle ST segment changes, likely needs troponin trended and a stress test rule out, patient hemodynamically stable chest pain improved after nitroglycerin trial Time: 02:00 Vital Signs Temperature 97.5 F L 12/11/16 00:03 Pulse Rate 84 12/11/16 00:03 Respiratory Rate 18 12/11/16 00:03 Blood Pressure 198/129 12/11/16 00:03 O2 Sat by Pulse Oximetry 98 12/11/16 00:03 Temperature 97.5 F L 12/11/16 00:03 Pulse Rate 83 12/11/16 01:33 Respiratory Rate 16 12/11/16 01:33 Blood Pressure 161/97 12/11/16 01:33 O2 Sat by Pulse Oximetry 99 12/11/16 01:33 Oxygen Delivery Oxygen Delivery Room Air Chest Pain - Differential Diagnosis Likely: stable angina, unstable angina pectoris, atypical chest pain - Medical Records Medical records reviewed: Yes I reviewed the patient's medical records. - Lab Data Lab results reviewed: Yes I reviewed the patient's lab results. Result diagrams: 12/11/16 00:27 12/11/16 00:27 Lab Results 12/11/16 12/11/16 12/11/16 Range/Units 00:27 00:27 00:27 WBC 8.3 (4.3-11.1) K/mcL RBC 4.50 (3.82-4.97) M/mcL Hgb 12.5 (11.5-15.4) g/dL Hct 37.9 (35.3-44.9) % MCV 84.2 (83.0-100.0) fL MCH 27.8 L (28.0-33.3) pg MCHC 33.0 (31.6-35.5) g/dL RDW 14.3 (11.5-14.5) % Plt Count 365 (140-400) K/mcL MPV 9.6 (9.4-12.4) fL Immature Gran % 0.4 (0-4) % Seg Neutrophils % 61.1 % Lymphocytes % 28.3 % Monocytes % 5.1 % Eosinophils % 4.5 % Basophils % 0.6 % Neutrophils # 5.1 (1.6-8.9) K/mcL Lymphocytes # 2.4 (0.6-4.6) K/mcL Monocytes # 0.4 (0.0-1.3) K/mcL Eosinophils # 0.4 (0.0-0.6) K/mcL Basophils # 0.1 (0.0-0.2) K/mcL Immature Plt Fraction 2.6 (1.1-6.1) % PT 11.0 (9.4-12.1) Seconds INR 1.0 APTT 29.4 (26.0-36.0) Seconds Sodium 137 (136-145) mEq/L Potassium 2.8 L (3.5-4.5) mEq/L Chloride 105 (98-109) mEq/L Carbon Dioxide 22 (19-29) mEq/L BUN 11 (7-20) mg/dL Creatinine 0.85 (0.57-1.11) mg/dL Est GFR ( Amer) > 60 (> 60) Est GFR (Non-Af Amer) > 60 (> 60) BUN/Creatinine Ratio 13 (6-26) Glucose 165 H (70-99) mg/dL Calculated Osmolality 287 (280-300) Calcium 9.4 (8.6-10.8) mg/dL Troponin I (0-0.03) ng/mL 12/11/16 Range/Units 00:27 WBC (4.3-11.1) K/mcL RBC (3.82-4.97) M/mcL Hgb (11.5-15.4) g/dL Hct (35.3-44.9) % MCV (83.0-100.0) fL MCH (28.0-33.3) pg MCHC (31.6-35.5) g/dL RDW (11.5-14.5) % Plt Count (140-400) K/mcL MPV (9.4-12.4) fL Immature Gran % (0-4) % Seg Neutrophils % % Lymphocytes % % Monocytes % % Eosinophils % % Basophils % % Neutrophils # (1.6-8.9) K/mcL Lymphocytes # (0.6-4.6) K/mcL Monocytes # (0.0-1.3) K/mcL Eosinophils # (0.0-0.6) K/mcL Basophils # (0.0-0.2) K/mcL Immature Plt Fraction (1.1-6.1) % PT (9.4-12.1) Seconds INR APTT (26.0-36.0) Seconds Sodium (136-145) mEq/L Potassium (3.5-4.5) mEq/L Chloride (98-109) mEq/L Carbon Dioxide (19-29) mEq/L BUN (7-20) mg/dL Creatinine (0.57-1.11) mg/dL Est GFR ( Amer) (> 60) Est GFR (Non-Af Amer) (> 60) BUN/Creatinine Ratio (6-26) Glucose (70-99) mg/dL Calculated Osmolality (280-300) Calcium (8.6-10.8) mg/dL Troponin I 0.01 (0-0.03) ng/mL - Radiology Data Radiology results reviewed: Yes I reviewed the patient's radiology results. Chest X-Ray 12/11/16 00:13 IMPRESSION: No significant change compared to prior study. No acute cardiopulmonary findings. Stable mild cardiomegaly. D/ / Weston Delong MD / Weston Delong MD Interpreting Provider: Weston Delong MD - EKG Data EKG attestation: Yes I reviewed and interpreted this EKG. EKG shows normal: sinus rhythm Rate: normal (3 bpm ME 172 QRS 22 and QTc [address] elevation or depressions in V5 and V6 and lateral precordial leads) Interpretation: nonspecific ST-T wave changes - Core Measures AMI Core Measures Followed: Yes Heart Score - Score History: Moderately Suspicious EKG: Significant ST-Depression Age: Less than 45 Risk Factors: Equal/Greater than 3 risk factor or history of atherosclerotic disease Troponin: Less than normal limit HEART Score Total: 5 Attestation Statement - Attestation Attestation: I examined this patient and my medical decision-making was reviewed with the Resident Physician. I agree with the documented findings, disposition and treatment plan as described except to the extent set forth below. Patient presents to the ED with chest pain lightheadedness and possible syncope. Patient was out to eat at [employer]. States she did not already. She got chest pain. She went out to the car and collapsed. Patient is pain- free on my evaluation after 2 nitroglycerin. On exam she is in no acute distress with clear lungs. Plan. Cardiac workup. We did review her heart catheterization from January. Her coronaries were angiographically free of disease with an ejection fraction of 65%. Patient does have new EKG changes with lateral ST depressions. Possible syncope. Will admit.
[2016-12-11 00:34] LABS: Basophils # 0.1 K/mcL (0.0-0.2); Basophils % 0.6 %; Eosinophils # 0.4 K/mcL (0.0-0.6); Eosinophils % 4.5 %; Hematocrit 37.9 % (35.3-44.9); Hemoglobin 12.5 g/dL (11.5-15.4); Immature Granulocytes % 0.4 % (0-4); Immature Platelets 2.6 % (1.1-6.1); Lymphocytes # 2.4 K/mcL (0.6-4.6); Lymphocytes % 28.3 %; Mean Corpuscular Hemoglobin 27.8 pg (28.0-33.3); Mean Corpuscular Volume 84.2 fL (83.0-100.0); Mean Platelet Volume 9.6 fL (9.4-12.4); Monocytes # 0.4 K/mcL (0.0-1.3); Monocytes % 5.1 %; Neutrophils # 5.1 K/mcL (1.6-8.9); Platelet Count 365 K/mcL (140-400); Red Cell Distribution Width 14.3 % (11.5-14.5); Segmented Neutrophils % 61.1 %
[2016-12-11] MEDS: Nitroglycerin 0.4 MG TAB.SUBL SL PRN ×2 (00:35→00:51)
[2016-12-11 00:42] LABS: Activated Partial Thrombo Time 29.4 Seconds (26.0-36.0)
[2016-12-11 00:46] LABS: BUN/Creatinine Ratio 13 (6-26); Blood Urea Nitrogen 11 mg/dL (7-20); Calcium 9.4 mg/dL (8.6-10.8); Carbon Dioxide 22 mEq/L (19-29); Chloride 105 mEq/L (98-109); Glucose 165 mg/dL (70-99); Osmolality,Calculated 287 (280-300); Potassium 2.8 mEq/L (3.5-4.5); Sodium 137 mEq/L (136-145); eGFR For African Americans > 60 (> 60); eGFR For Non-African Americans > 60 (> 60)
[2016-12-11] MEDS ORDERED: clonazePAM 0.5 MG TABLET PO PRN (02:17)
[2016-12-11] MEDS ORDERED: Acetaminophen 325 MG TABLET PO PRN (02:20)
[2016-12-11] MEDS ORDERED: Naloxone 0.4 MG/ML INJ IVP PRN (02:20)
--- NOTE | 2016-12-11 02:28 | Internal Med History&Physical ---
Date of Encounter: 12/11/16 Time of Encounter: 02:24 Assessment and Plan (1) Chest pain with low risk of acute coronary syndrome Current visit: No Status: Acute observation, trend trop, repeat EKG in the morning, consult card given unable to do stress testing and known to Dr Loaiza (2) Accelerated hypertension Current visit: No Status: Acute continue anti-HTN, adjust accordingly (3) Morbid obesity Current visit: No Status: Acute chronic (4) Generalized anxiety disorder Current visit: No Status: Chronic continue med Internal Medicine - H&P: HPI Chief complaint: Chest pain Admitted From: Home History of present illness: Ms. Dewitt is a 41 year old female with hx of HTN and has a chest pain hx who presents for acute chest pain episode. During dinner time last evening, she felt unwell and noted a pressure and pain liked sensation over her left chest with radiation to the back, left shoulder and with numbness of left finger. Rated 8-9 out of 10. Associated with pre-syncope episode during chest pain syndrome. When she was seen, her chest pain improved with nitro. She sees Dr Loaiza of cardiology and is unable to get stress testing 2 x previously due to intra-testing hypertension. As a result, she underwent a LHC around jan 2016 where it was reported to be w/o significant disease. She has poorly controlled HTN on multiple agents which is managed by nephrology and card EKG reviewed by self with rate 83, NSR, ST depression in lateral leads, Past Med Surg Social Fam HX - Past Medical History Medical history: arthritis, asthma, cardiomyopathy, COPD, diabetes, hyperlipidemia, hypertension, osteoporosis, peripheral artery disease, other Psychiatric history: anxiety - Past Surgical History Surgical History: hysterectomy, VIOLA/BSO, other - Social History Smoking Status: Never smoker Smokeless Tobacco Status: No Alcohol use: none, rarely Drug use: none - Family History Mother Adopted: No Living Status: Still Living Hx Family Respiratory Disorders: Yes (Asthma) Father Adopted: No Living Status: Hx Family Cardiac Disorders: Yes (Father had "heart attack" at his 35 yo) Internal Medicine - H&P: Meds Albuterol Sulfate [Albuterol Inhaler] 1 - 2 puff IH Q4HR PRN 08/31/15 [History] Losartan/Hydrochlorothiazide [Hyzaar 100-25 Tablet] 1 tab PO DAILY 08/31/15 [ History] Torsemide [Demadex] 10 mg PO DAILY PRN 08/31/15 [History] clonazePAM [Klonopin] 0.5 mg PO BID PRN 08/31/15 [History] Cholecalciferol (Vitamin D3) [Vitamin D3] 10,000 unit PO DAILY 02/05/16 [History ] Metoprolol XL (24 HR) Succ [Toprol Xl] 200 mg PO DAILY #0 02/05/16 [History] Spironolactone [Aldactone] 25 mg PO DAILY 02/05/16 [History] amLODIPine [Norvasc] 10 mg PO DAILY 02/05/16 [History] hydrALAZINE [HydrALAZINE] 25 mg PO Q8HR #90 tablet 02/06/16 [Rx] Estradiol [Estrace] 1 mg PO DAILY 03/03/16 [History] Potassium Chloride [K-Tab ER] 10 meq PO DAILY #30 tablet.er 05/24/16 [Rx] cloNIDine HCl [Clonidine HCl] 0.2 mg PO 1-3XD 08/22/16 [History] Allergies morphine Allergy (Verified 09/01/16 19:53) Anaphylaxis nalbuphine [From Nubain] Allergy (Verified 09/01/16 19:53) Anaphylaxis Trimethobenzamide [From Tigan] Allergy (Verified 09/01/16 19:53) Anaphylaxis All Systems PM: A 10-system review of systems was performed and is negative for pertinent findings except as documented above in the HPI. Review of systems: ROS 14 point review of systems reviewed as best as possible given presentation. Pertinent positive or negative as per HPI or otherwise reviewed as negative - Constitutional Vitals: Temp Pulse Resp BP Pulse Ox 97.5 F L 83 14 151/95 99 12/11/16 00:03 12/11/16 01:33 12/11/16 02:21 12/11/16 02:21 12/11/16 01:33 Exam: General - AAO x 3 Psych - Appropriate affect/speech. No agitation Eyes - NEVIN. Eye lids intact. No scleral icterus ENT - Oral mucosa pink, dentition intact. External ear clear/dry/intact. No thyromegaly Lymphatics - No cervical/inguinal lympadenopathy Neuro - No gross peripheral or central neuro deficits with intact CN 2-12 exam Heart - Sinus. RRR. S1 and S2 present. No added HS/murmurs appreciated. No elevated JVD appreciated. No calf swellings/erythema Lung - Adequate air entry b/l, No crackes/wheezes appreciated GI - Soft, non-tender. No hepatosplenomegaly/ascities. BS+ - No CVA/suprapubic tenderness or palpable bladder distension Skin - Intact. No rash/petechiae/ecchymosis. Warm extremities MSK - Joints with normal ROM. No joint swellings Internal Med - H&P Results - Labs CBC & Chem 7: 12/11/16 00:27 12/11/16 00:27
[2016-12-11] MEDS ORDERED: hydrALAZINE 25 MG TABLET PO SCH (06:00)
--- NOTE | 2016-12-11 08:49 | Cardiology Consult Note ---
Date of Encounter: 12/11/16 Time of Encounter: 08:30 Assessment and Plan (1) Hypertensive urgency Current Visit: No Status: Acute Recheck renin/jannette level this morning. Change toprol to coreg for improved alpha blockade. Start Imdur 60 mg daily which may help with further chest pain as a result of her HTN, though unlikely to have a significant impact on her BP. 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 Patient may be discharged today from cardiac standpoint. (2) Accelerated hypertension Current Visit: No Status: Acute Recheck renin/jannette level this morning. Change toprol to coreg for improved alpha blockade. Start Imdur 60 mg daily which may help with further chest pain as a result of her HTN, though unlikely to have a significant impact on her BP. 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 (3) Chest pain Current Visit: No Status: Acute ruled out for KS. 2/2 htn urgency Qualifiers: Chest pain type: unspecified Qualified Code(s): R07.9 - Chest pain, unspecified Discussion w patient/family: The assessment and plan as outlined above was discussed with the patient and/or family members who expressed understanding and agreement. All questions were answered. Thank you for involving us in the care of your patient. Please call with any questions. History of Present Illness Consult date: 12/11/16 History of present illness: Ms. Dewitt is a 41 year old female with recent LHC showing minimal CAD presenting with chest discomfort and hypertension. BP have been difficult to control despite maximal medical therapy including max doses of BB, norvasc, clonidine, hydralazine, hctz, aldactone, ARB. Previous renal us, renin/jannette, renal angiogram and htn workup unrevealing for secondary cause. Retrosternal moderate-severe chest discomfort radiating to her back and left arm has now resolved after NTG and BP has improved and has not recurred. Patient aware it is not her coronaries/cardiac as cause of her chest discomfort. Past Med Surg Social Fam HX - Past Medical History Medical history: arthritis, asthma, cardiomyopathy, COPD, hypertension, other Psychiatric history: anxiety - Past Surgical History Surgical History: hysterectomy, other - Social History Smoking Status: Never smoker Smokeless Tobacco Status: No Alcohol use: rarely Drug use: none - Family History Mother Adopted: No Living Status: Still Living Hx Family Respiratory Disorders: Yes (Asthma) Father Adopted: No Living Status: Hx Family Cardiac Disorders: Yes (Father had "heart attack" at his 35 yo) Medications and Allergies Albuterol Sulfate [Albuterol Inhaler] 1 - 2 puff IH Q4H PRN 08/31/15 [History] Losartan/Hydrochlorothiazide [Hyzaar 100-25 Tablet] 1 tab PO DAILY 08/31/15 [ History] Torsemide [Demadex] 10 mg PO DAILY PRN 08/31/15 [History] clonazePAM [Klonopin] 0.5 mg PO BID PRN 08/31/15 [History] Cholecalciferol (Vitamin D3) [Vitamin D3] 10,000 unit PO DAILY 02/05/16 [History ] Metoprolol XL (24 HR) Succ [Toprol Xl] 200 mg PO DAILY #0 02/05/16 [History] Spironolactone [Aldactone] 25 mg PO DAILY 02/05/16 [History] amLODIPine [Norvasc] 10 mg PO DAILY 02/05/16 [History] hydrALAZINE [HydrALAZINE] 25 mg PO Q8HR #90 tablet 02/06/16 [Rx] cloNIDine HCl [Clonidine HCl] 0.2 mg PO 1-3XD 08/22/16 [History] Allergies morphine Allergy (Verified 09/01/16 19:53) Anaphylaxis nalbuphine [From Nubain] Allergy (Verified 09/01/16 19:53) Anaphylaxis Trimethobenzamide [From Tigan] Allergy (Verified 09/01/16 19:53) Anaphylaxis All Systems Review: A 10-system review of systems was performed and is negative for pertinent findings except as documented above in the HPI. - Constitutional Constitutional: no chills, no fever(s) - EENT Eyes: no blurred vision, no loss of vision Nose, mouth and throat: no dysphagia, no epistaxis - Cardiovascular Cardiovascular: chest pain at rest, no diaphoresis - Respiratory Respiratory: no hemoptysis, no wheezing - Gastrointestinal Gastrointestinal: no hematemesis, no hematochezia - Genitourinary Genitourinary: no dysuria, no hematuria - Musculoskeletal Musculoskeletal: no arthralgias, no myalgias - Integumentary Integumentary: no erythema, no rash - Neurological Neurological: no focal weakness, no loss of vision - Psychiatric Psychiatric: no anxiety, no depression - Hematological/Lymphatic Hematologic/Lymphatic: no easy bleeding, no easy bruising Physical Examination Vital Signs, Last 4 Hours Temp Pulse Resp BP Pulse Ox 12/11/16 08:02 97.8 F 76 16 168/100 98 General: Conversant HEENT: Atraumatic Neck: No JVD Cardiac: Reg Rate and Rhythm Lungs: Normal Breath Sounds Neuro: Alert and responsive Abdomen: Soft Skin: No rashes noted on visualized skin Musculoskeletal: No Chest Wall Tenderness Extremities: No Edema Results 12/11/16 00:27 12/11/16 00:27 - EKG Interpretation EKG results cardiology: personally reviewed Consult Discharge Plan - Plan Referrals: NONE,PCP [Non-Partnered Physician] -
[2016-12-11] MEDS ORDERED: Metoprolol XL (24 HR) Succ 50 MG TAB.ER.24H PO SCH (09:00)
[2016-12-11] MEDS ORDERED: amLODIPine 5 MG TABLET PO SCH (09:00)
[2016-12-11] MEDS ORDERED: Losartan/HCTZ 50-12.5 TABLET PO SCH (09:00)
[2016-12-11] MEDS ORDERED: Cholecalciferol (D-3) 1,000 UNIT TABLET PO SCH (09:00)
[2016-12-11] MEDS ORDERED: Spironolactone 25 MG TABLET PO SCH (09:00)
[2016-12-11] MEDS: cloNIDine HCl 0.1 MG TABLET PO SCH ×2 (09:03→16:37)
[2016-12-11] MEDS: hydrALAZINE 25 MG TABLET PO SCH ×2 (10:27→16:37)
--- NOTE | 2016-12-11 18:52 | Discharge Summary ---
Date of Encounter: 12/11/16 Time of Encounter: 18:15 - Discharge Diagnosis (1) Chest pain Priority: Primary Status: Resolved Comments: patient denied chest pain on day of discharge. Blood pressure better controlled. ACS ruled out. Qualifiers: Chest pain type: unspecified Qualified Code(s): R07.9 - Chest pain, unspecified (2) Hypertensive urgency Priority: Primary Status: Resolved Comments: Normotensive at time of discharge. Cardiology was on board and they changed her Toprol to Coreg for improved alpha blockade and she was also started on Imdur 60 mg daily. Recommend daily blood pressure checks at home, and following up outpatient. (3) Anxiety Priority: Secondary Status: Chronic Comments: Mood and affect stable while admitted (4) Hypokalemia Priority: Primary Status: Resolved Comments: Acute on chronic, repleted and resolved prior to discharge (5) Morbid obesity with BMI of 40.0-44.9, adult Priority: Secondary Status: Chronic (6) Asthma Priority: Secondary Status: Chronic Comments: No acute exacerbation. Patient denies shortness of breath above her norm. (7) Obstructive sleep apnea of adult Priority: Secondary Status: Chronic (8) Noncompliance with CPAP treatment Priority: Secondary Status: Chronic (9) DVT prophylaxis Priority: Primary Status: Acute Comments: Observation patient - Discharge Medications Prescriptions: Carvedilol [Coreg] 25 mg PO BIDWM #60 tab Hydralazine HCl 50 mg PO Q8H #90 tablet Isosorbide MONOnitrate (24 HR) [Imdur] 60 mg PO DAILY #30 tab.er.24h Home Medications: Albuterol Sulfate [Albuterol Inhaler] 1 - 2 puff IH Q4H PRN 08/31/15 [History] Losartan/Hydrochlorothiazide [Hyzaar 100-25 Tablet] 1 tab PO DAILY 08/31/15 [ History] Torsemide [Demadex] 10 mg PO DAILY PRN 08/31/15 [History] clonazePAM [Klonopin] 0.5 mg PO BID PRN 08/31/15 [History] Cholecalciferol (Vitamin D3) [Vitamin D3] 10,000 unit PO QWEEK 02/05/16 [History ] Spironolactone [Aldactone] 25 mg PO DAILY 02/05/16 [History] amLODIPine [Norvasc] 10 mg PO DAILY 02/05/16 [History] cloNIDine HCl [Clonidine HCl] 0.2 mg PO 1-3XD 08/22/16 [History] Carvedilol [Coreg] 25 mg PO BIDWM #60 tab 12/11/16 [Rx] Hydralazine HCl 50 mg PO Q8H #90 tablet 12/11/16 [Rx] Isosorbide MONOnitrate (24 HR) [Imdur] 60 mg PO DAILY #30 tab.er.24h 12/11/16 [ Rx] Allergies/Adverse Reactions: Allergies morphine Allergy (Verified 12/11/16 14:48) Anaphylaxis nalbuphine [From Nubain] Allergy (Verified 12/11/16 14:48) Anaphylaxis Trimethobenzamide [From Tigan] Allergy (Verified 12/11/16 14:48) Hives Procedures/tests Complete & Pending: Procedures Performed prior 72 hours Category Date Time Status ECG 12 lead ECG [ECG] AM 0600 Y 12/11/16 06:00 Ordered Date of admission: 12/11/16 01:46 Primary care physician: Hayden Phan MD Consults: 12/11/16 02:22 Consult to Cardiology [CONS] Routine Comment: Consulting Provider: Cardiology [place] Reason for Consult: Known to Dr Loaiza. Chest pain. Unable to get stress testing x 2 due to taylor-testing hypertension Call Completed: No Discharging clinician: Leanne Britt (\) Anticipated date of discharge: 12/11/16 (\) - Patient Status Disposition: Home, Self-Care Condition: Fair Functional capacity at discharge: independent ambulation Overall status at discharge: patient is back to baseline - Discharge Instructions Follow Up With: Arnie Mittal DO [Partnered Physician] - Hayden Phan MD [Primary Care Provider] - Zari Loaiza MD [Partnered Physician] - Additional Instructions: Follow-up with cardiology, primary care, and nephrology within 2 weeks - Diet and Activity Activity: increase activity as tolerated Diet: diabetic diet, low fat, low cholesterol, low salt diet Hospital course: Ms. Dewitt is a 41 year old female with past medical history of COPD, diabetes, hyperlipidemia, hypertension, PAD, morbid obesity. Patient presented to the emergency department with chief complaint of chest pain. Patient sitting on the dinner prior to presentation, she did not feel well and noted pressure in pain like sensation over her left chest with radiation to her back, left shoulder, and associated with numbness of her left finger. Patient also endorsed presyncopal episode during the chest pain episode. Chest pain improved in the emergency department with nitroglycerin. Patient sees Dr. Loaiza of cardiology and has been unable to get stress testing twice outpatient due to intra-testing hypertension so as a result of this, she underwent a left heart catheter in January 2016 where his reported to be without significant disease. Patient with poorly controlled hypertension on multiple medications and is managed by nephrology and cardiology. Workup in the emergency department unremarkable other than accelerated hypertension. Chest x-ray negative for acute processes. Patient was admitted to the hospitalist service for further evaluation and management. Cardiology was brought on board. The following changes were made to her medication: Hydralazine dosage was increased from 25 mg to 50 mg 3 times a day, metoprolol was stopped and Coreg was started to improve alpha blockade, Imdur 60 mg daily was added to her regimen. She was normotensive on day of discharge and asymptomatic. Patient denied chest pain or shortness of breath throughout this admission. Troponin negative 2. She was cleared for outpatient follow-up per cardiology. She was discharged home in stable condition with close outpatient follow-up recommended. She was instructed to check her blood pressure frequently and keep a log for her primary care team. ITS Impressions Chest X-Ray 12/11/16 00:13 IMPRESSION: No significant change compared to prior study. No acute cardiopulmonary findings. Stable mild cardiomegaly. D/ / Weston Delong MD / Weston Delong MD Interpreting Provider: Weston Delong MD - Time Spent with Patient Total time spent providing and/or coordinating discharge services: - Constitutional Vitals: Temp Pulse Resp BP Pulse Ox 97.5 F L 70 16 124/83 95 12/11/16 16:24 12/11/16 16:24 12/11/16 16:24 12/11/16 16:24 12/11/16 16:24 General appearance: Present: A&O X 3, morbidly obese, pleasant, no acute distress, answers questions appropriately - Head Head exam: Present: atraumatic, normocephalic - Eye Eye exam: Present: PERRL, conjuntiva pink, sclera anicteric Pupils: Present: PERRL - Neck Neck exam general surgery: Present: supple, trachea midline. Absent: lymphadenopathy - Respiratory Respiratory exam: Present: CTAB. Absent: accessory muscle use, rales, respiratory distress, rhonchi, wheezes - Cardiovascular Cardiovascular exam: Present: RRR, +S1, +S2. Absent: diastolic murmur, gallop, rubs, systolic murmur - GI/Abdominal GI/Abdominal exam: Present: normal bowel sounds, soft, no peritoneal signs. Absent: distended, tenderness - Extremities Exam Extremities exam: Present: warm, radial pulses palpable and symetrical. Absent : calf tenderness, cyanotic, pedal edema - Neurological Exam Neurological exam: Present: alert, CN II-XII intact, normal gait, oriented X3, no focal deficits, strengths equal and symetr throughout. Absent: pronater drift, facial droop, speech deficit - Skin Skin exam: Present: dry, intact, normal color, warm
[2016-12-11 19:04] VITALS: BP 89/54
--- NOTE | 2016-12-12 18:44 | Electrocardiograph Report ---
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
--- NOTE | 2016-12-12 18:47 | Electrocardiograph Report ---
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
[2016-12-14 08:48] LABS: Alanine Aminotransferase 11 Units/L (0-55); Albumin 2.8 g/dL (3.5-5.0); Albumin/Globulin Ratio 0.9 (1.1-2.2); Alkaline Phosphatase 112 Units/L (38-126); Aspartate Amino Transferase 6 Units/L (5-34); BUN/Creatinine Ratio 34 (6-26); Blood Urea Nitrogen 33 mg/dL (7-20); Calcium 9.3 mg/dL (8.6-10.8); Carbon Dioxide 32 mEq/L (19-29); Chloride 96 mEq/L (98-109); Globulin 3.1 g/dL (2.4-3.5); Glucose 366 mg/dL (70-99); Osmolality,Calculated 306 (280-300); Potassium 4.5 mEq/L (3.5-4.5); Sodium 137 mEq/L (136-145); Total Protein 5.9 g/dL (6.0-8.3); eGFR For African Americans > 60 (> 60); eGFR For Non-African Americans > 60 (> 60)
[2016-12-14 08:49] LABS: Bilirubin,Total < 0.3 mg/dL (0.2-1.2)
== END 2016-12-11 19:25 | disposition home or self-care (01) ==
LOC: EMEROO 00:02 → 3BNU 00:02
PROVIDERS: ADMIT Internal Medicine Hematology & Oncology; ATTEND Nurse Practitioner Family

== ENCOUNTER 2017-09-07 10:00 | Observation (INO) ==
[2017-09-07] MEDS ORDERED: Aspirin 81 MG TAB.CHEW PO ONE (10:11)
[2017-09-07 10:35] LABS: Basophils # 0.1 K/mcL (0.0-0.2); Basophils % 0.9 %; Eosinophils # 0.2 K/mcL (0.0-0.6); Eosinophils % 2.8 %; Hematocrit 41.4 % (35.3-44.9); Immature Granulocytes % 0.5 % (0-4); Lymphocytes # 2.1 K/mcL (0.6-4.6); Lymphocytes % 26.4 %; Mean Corpuscular HGB Conc 33.8 g/dL (31.6-35.5); Mean Corpuscular Hemoglobin 28.8 pg (28.0-33.3); Mean Corpuscular Volume 85.2 fL (83.0-100.0); Mean Platelet Volume 9.8 fL (9.4-12.4); Monocytes # 0.3 K/mcL (0.0-1.3); Neutrophils # 5.2 K/mcL (1.6-8.9); Platelet Count 361 K/mcL (140-400); Red Blood Count 4.86 M/mcL (3.82-4.97); Red Cell Distribution Width 14.2 % (11.5-14.5); Segmented Neutrophils % 65.4 %
[2017-09-07 10:49] LABS: Bilirubin,Urine Negative (Negative); Blood,Urine Negative (Negative); Color,Urine Yellow (Yellow); Glucose,Urine (UA) Normal (Normal); Ketones,Urine Negative (Negative); Leukocyte Esterase,Urine Small (Negative); Nitrite,Urine Positive (Negative); Protein,Urine Trace mg/dL (Neg-Trace); Specific Gravity,Urine 1.023 (1.010-1.025); Urobilinogen,Urine Normal (Normal)
[2017-09-07 10:50] LABS: Bacteria,Urine Many per hpf (None-Few); Hyaline Casts,Urine None Seen per lpf (None-Few); RBC,Urine 0-3 per hpf (0-3); Squamous Epithelial Cell,Urine Many per lpf (None-Few); WBC,Urine 15-30 per hpf (0-3)
[2017-09-07 11:04] LABS: BUN/Creatinine Ratio 23 (6-26); Blood Urea Nitrogen 15 mg/dL (6-20); Calcium 9.3 mg/dL (8.6-10.3); Carbon Dioxide 25 mEq/L (23-29); Chloride 103 mEq/L (98-107); Glucose 105 mg/dL (70-105); Osmolality,Calculated 283 (280-300); Potassium 3.8 mEq/L (3.5-5.1); Sodium 136 mEq/L (136-145); Troponin I 0.03 ng/mL (< 0.04); eGFR For African Americans > 60 (> 60); eGFR For Non-African Americans > 60 (> 60)
[2017-09-07 11:10] LABS: Clarity,Urine Clear (Clear)
--- NOTE | 2017-09-07 11:12 | Emergency Department Note ---
Disposition Clinical Impression: Accelerated hypertension Urinary tract infection Qualifiers: Urinary tract infection type: site unspecified Hematuria presence: without hematuria Qualified Code(s): N39.0 - Urinary tract infection, site not specified Syncope Qualifiers: Syncope type: unspecified Qualified Code(s): R55 - Syncope and collapse Disposition: Admitted As Inpatient Referrals: Fermin Qureshi DO [Primary Care Provider] - Forms: ED Satisfaction Letter Chest Pain HPI - General Chief Complaint: ED Chest Pain Stated Complaint: Hypertension Time Seen by Provider: 09/07/17 10:01 Source: patient Limitations: no limitations Vital Signs Reviewed: Yes Nursing Notes Reviewed: Yes - History of Present Illness HPI Narrative: 42-year-old female history of hypertension and ELIA presents to the emergency department for hypertension and chest pain. Patient was seen and evaluated in the cardiology office by Dr. Zari Loaiza was sent here for further evaluation. Patient reports history of uncontrolled hypertension on multiple medications and reports elevated blood pressure over the past few weeks. Sometimes he will go down but with certain exertion will elevate. She also reports some skipping the beats and palpitations, history of PVC she reports. Today she had a blood pressure of 230/150 in the office and was sent here for further evaluation. On her way over here she complained of some chest tightness that has been chronic and currently being evaluated by the disability program navigator. She states this is typically due to her elevated blood pressure reading. She denied any associated shortness of breath, diaphoresis, nausea or vomiting. She took her morning antihypertensive medication carvedilol clonidine losartan and hydralazine. Her initial blood pressure was systolic 200. She denies any headache, blurry vision, difficulty urinating, abdominal pain, nausea or vomiting. Reported unremarkable heart cathteterization in 2016. At this time will complete a chest pain workup evaluation to evaluate for any ischemia or organ damage. Will contact the disability program navigator for final disposition. Pt complaint: chest pain Severity scale (1-10): 2 - Related Data Home Medications Medication Instructions Recorded Confirmed Albuterol Sulfate [Albuterol 1 - 2 puff IH Q4H PRN 08/31/15 08/27/17 Inhaler] Losartan/Hydrochlorothiazide 1 tab PO DAILY 08/31/15 08/27/17 [Hyzaar 100-25 Tablet] Torsemide [Demadex] 10 mg PO DAILY PRN 08/31/15 08/27/17 clonazePAM [Klonopin] 0.5 mg PO BID PRN 08/31/15 08/27/17 Cholecalciferol (Vitamin D3) 10,000 unit PO TH 02/05/16 08/27/17 [Vitamin D3] Spironolactone [Aldactone] 25 mg PO DAILY 02/05/16 08/27/17 amLODIPine [Norvasc] 10 mg PO DAILY 02/05/16 08/27/17 cloNIDine HCl [Clonidine HCl] 0.2 mg PO 1-3XD 08/22/16 08/27/17 Ondansetron ODT [Zofran ODT] 4 mg SL Q6HR PRN 01/15/17 08/27/17 Previous Rx's Medication Instructions Recorded Carvedilol [Coreg] 25 mg PO BIDWM #60 tab 12/11/16 Hydralazine HCl 50 mg PO Q8H #90 tablet 12/11/16 Allergies Allergy/AdvReac Type Severity Reaction Status Date / Time morphine Allergy Difficulty Verified 08/27/17 22:06 Breathing nalbuphine [From Nubain] Allergy Difficulty Verified 08/27/17 22:06 Breathing Trimethobenzamide Allergy Hives Verified 08/27/17 22:06 [From Tigan] All systems ED: reviewed and negative except as stated. Review of Systems: As Per HPI Constitutional: Denies: fever, chills ENT ED: Denies: congestion Cardiovascular: Reports: chest pain, palpitations Respiratory: Denies: cough, dyspnea Gastrointestinal: Denies: abdominal pain, nausea, vomiting Genitourinary: Denies: urgency, dysuria Musculoskeletal: Denies: back pain, neck pain Integumentary: Denies: rash, abrasion Neurological: Denies: headache, weakness Chest Pain PMH - Past Medical History Medical history: Reports: arthritis, asthma, cardiomyopathy, COPD, hypertension , other Surgical history: Reports: hysterectomy Psychiatric history: Reports: anxiety QA TEST ANALYST history: Reports: non-contributory - Social History Smoking Status: Never smoker Alcohol use: Reports: rarely Drug use: Reports: none Physical Exam - General Limitations: no limitations General appearance: alert, in no apparent distress, obese (Morbidly) - Head Head exam: atraumatic, normocephalic, normal inspection - Eye Eye exam: Present: normal appearance, PERRL, EOMI - ENT ENT exam: normal exam, normal oropharynx, mucous membranes moist - Neck Neck exam: Present: normal inspection, full ROM, trachea midline - Chest Chest inspection: Present: normal inspection, symmetric chest wall rise - Respiratory Respiratory exam: Present: normal lung sounds bilaterally - Cardiovascular Cardiovascular exam: Present: regular rate, normal rhythm, normal heart sounds. Absent: systolic murmur, diastolic murmur - Expanded Cardiovascular Exam Peripheral pulses: 2+: radial (R), radial (L) - Abdominal Exam Abdominal exam: Present: soft (Obese), Non-Tender, normal bowel sounds. Absent : tenderness, distention, guarding, rebound, rigidity - Extremities Exam Extremities exam: Present: normal inspection, full ROM, normal capillary refill. Absent: tenderness, pedal edema, calf tenderness - Neurological Exam Neurological exam: Present: alert, oriented X3 - Psychiatric Psychiatric exam: Present: normal affect, normal mood - Skin Skin exam: Present: warm, dry, intact, normal color. Absent: rash, cyanosis, diaphoresis Course Course Narrative: Review for labs urinalysis is consistent with infection given positive nitrite and leuk esterase. Will treat her with ceftriaxone. Her blood pressure has gradually come down despite any medical intervention. Her labs have been otherwise unremarkable. Troponin lesson 0.03. EKG showed LVH. She also disclosed about 2 weeks ago she had a syncopal episode where she injured her left wrist. It was imaged and she did not have any fractures. She also continues to report intermittent PVCs and palpitations. I discussed with her disability program navigator Dr. Zari Loaiza regarding the patient's case in this brief information. She does recommend admission to the hospitalist for better blood pressure control with the aim of diastolic under 100. Her last blood pressure was 160/120. She recommends placing on Nicardipine drip. At this time patient will be admitted to the hospitalist for accelerated hypertension, urinary tract infection, syncope. Cardiology will be happy to consult with Dr. Loaiza did recommend possibly consulting Dr. Mittal nephrologists for any assistance for blood pressure control if needed. Vital Signs Temperature 98.2 F 09/07/17 10:03 Pulse Rate 87 09/07/17 10:03 Respiratory Rate 18 09/07/17 10:03 Blood Pressure 194/138 09/07/17 10:03 O2 Sat by Pulse Oximetry 96 09/07/17 10:03 Temperature 98.2 F 09/07/17 10:07 Pulse Rate 87 09/07/17 13:00 Respiratory Rate 12 09/07/17 13:00 Blood Pressure 169/114 09/07/17 13:00 O2 Sat by Pulse Oximetry 96 09/07/17 13:00 Oxygen Delivery Oxygen Delivery Room Air Chest Pain - MDM Narrative Medical decision making narrative: Patient was discussed with my attending physician who agrees with ED management and final disposition. They independently evaluated the patient. Please refer to their attestation to this encounter for additional information. This note was generated by [employer] recognition software and as a result grammatical or spelling errors may occur using this program. - Medical Records Medical records reviewed: Yes I reviewed the patient's medical records. - Lab Data Lab results reviewed: Yes I reviewed the patient's lab results. Result diagrams: 09/07/17 10:27 09/07/17 10:27 Lab Results 09/07/17 09/07/17 09/07/17 Range/Units 10:27 10:27 10:27 WBC 8.0 (4.3-11.1) K/mcL RBC 4.86 (3.82-4.97) M/mcL Hgb 14.0 (11.5-15.4) g/dL Hct 41.4 (35.3-44.9) % MCV 85.2 (83.0-100.0) fL MCH 28.8 (28.0-33.3) pg MCHC 33.8 (31.6-35.5) g/dL RDW 14.2 (11.5-14.5) % Plt Count 361 (140-400) K/mcL MPV 9.8 (9.4-12.4) fL Immature Gran % 0.5 (0-4) % Seg Neutrophils % 65.4 % Lymphocytes % 26.4 % Monocytes % 4.0 % Eosinophils % 2.8 % Basophils % 0.9 % Neutrophils # 5.2 (1.6-8.9) K/mcL Lymphocytes # 2.1 (0.6-4.6) K/mcL Monocytes # 0.3 (0.0-1.3) K/mcL Eosinophils # 0.2 (0.0-0.6) K/mcL Basophils # 0.1 (0.0-0.2) K/mcL Sodium 136 (136-145) mEq/L Potassium 3.8 (3.5-5.1) mEq/L Chloride 103 (98-107) mEq/L Carbon Dioxide 25 (23-29) mEq/L BUN 15 (6-20) mg/dL Creatinine 0.64 (0.60-1.20) mg/dL Est GFR ( Amer) > 60 (> 60) Est GFR (Non-Af Amer) > 60 (> 60) BUN/Creatinine Ratio 23 (6-26) Glucose 105 (70-105) mg/dL Calculated Osmolality 283 (280-300) Calcium 9.3 (8.6-10.3) mg/dL Troponin I 0.03 (< 0.04) ng/mL B-Natriuretic Peptide 19 (Less than 100) pg/mL TSH 2.057 (0.340-5.600) mcIU/mL Urine Color (Yellow) Urine Clarity (Clear) Urine pH (5.0-8.0) pH Units Ur Specific [place] (1.010-1.025) Urine Protein (Neg-Trace) mg/dL Urine Glucose (UA) (Normal) mg/dL Urine Ketones (Negative) mg/dL Urine Blood (Negative) Urine Nitrite (Negative) Urine Bilirubin (Negative) Urine Urobilinogen (Normal) mg/dL Ur Leukocyte Esterase (Negative) Urine Microscopic RBC (0-3) per hpf Urine Microscopic WBC (0-3) per hpf Ur Squamous Epith Cells (None-Few) per lpf Urine Bacteria (None-Few) per hpf Hyaline Casts (None-Few) per lpf Ur Culture Indicated? (NO) 09/07/17 Range/Units 10:40 WBC (4.3-11.1) K/mcL RBC (3.82-4.97) M/mcL Hgb (11.5-15.4) g/dL Hct (35.3-44.9) % MCV (83.0-100.0) fL MCH (28.0-33.3) pg MCHC (31.6-35.5) g/dL RDW (11.5-14.5) % Plt Count (140-400) K/mcL MPV (9.4-12.4) fL Immature Gran % (0-4) % Seg Neutrophils % % Lymphocytes % % Monocytes % % Eosinophils % % Basophils % % Neutrophils # (1.6-8.9) K/mcL Lymphocytes # (0.6-4.6) K/mcL Monocytes # (0.0-1.3) K/mcL Eosinophils # (0.0-0.6) K/mcL Basophils # (0.0-0.2) K/mcL Sodium (136-145) mEq/L Potassium (3.5-5.1) mEq/L Chloride (98-107) mEq/L Carbon Dioxide (23-29) mEq/L BUN (6-20) mg/dL Creatinine (0.60-1.20) mg/dL Est GFR ( Amer) (> 60) Est GFR (Non-Af Amer) (> 60) BUN/Creatinine Ratio (6-26) Glucose (70-105) mg/dL Calculated Osmolality (280-300) Calcium (8.6-10.3) mg/dL Troponin I (< 0.04) ng/mL B-Natriuretic Peptide (Less than 100) pg/mL TSH (0.340-5.600) mcIU/mL Urine Color Yellow (Yellow) Urine Clarity Clear (Clear) Urine pH 6.0 (5.0-8.0) pH Units Ur Specific [place] 1.023 (1.010-1.025) Urine Protein Trace (Neg-Trace) mg/dL Urine Glucose (UA) Normal (Normal) mg/dL Urine Ketones Negative (Negative) mg/dL Urine Blood Negative (Negative) Urine Nitrite Positive A (Negative) Urine Bilirubin Negative (Negative) Urine Urobilinogen Normal (Normal) mg/dL Ur Leukocyte Esterase Small H (Negative) Urine Microscopic RBC 0-3 (0-3) per hpf Urine Microscopic WBC 15-30 H (0-3) per hpf Ur Squamous Epith Cells Many H (None-Few) per lpf Urine Bacteria Many H (None-Few) per hpf Hyaline Casts None Seen (None-Few) per lpf Ur Culture Indicated? NO. A (NO) - Radiology Data Radiology results reviewed: Yes I reviewed the patient's radiology results. Chest X-Ray 09/07/17 10:11 IMPRESSION: No acute process. D/ / Hang Rahman MD / Hang Rahman MD Interpreting Provider: Hang Rahman MD - EKG Data EKG attestation: Yes I reviewed and interpreted this EKG. EKG results narrative: EKG performed 1010 normal sinus rhythm 89 bpm, occasional PVC, normal axis, no ST elevation or depression, inverted T waves and the lateral leads, LVH. Compared to prior EKG performed 12/11/2016 shows T-wave changes in the inferior leads and lateral leads on the prior. At this time no STEMI. Heart Score - Score History: Slightly Suspicious EKG: Normal Age: Less than 45 Risk Factors: 1-2 risk factors Troponin: Less than normal limit HEART Score Total: 1 Attestation Statement - Attestation Attestation: I, Damion Villafuerte DO, examined this patient [id number] and my medical decision-making was reviewed with Kelechi Sorenson DO , Resident Physician. I agree with the documented findings, disposition and treatment plan as described except to the extent set forth below. Please see my progress notes for details.
--- NOTE | 2017-09-07 11:35 | Emergency Department Note ---
Disposition Clinical Impression: Accelerated hypertension Urinary tract infection Qualifiers: Urinary tract infection type: site unspecified Hematuria presence: without hematuria Qualified Code(s): N39.0 - Urinary tract infection, site not specified Syncope Qualifiers: Syncope type: unspecified Qualified Code(s): R55 - Syncope and collapse Disposition: Admitted As Inpatient Condition: Fair Referrals: Fermin Qureshi DO [Primary Care Provider] - Forms: ED Satisfaction Letter Time of Disposition: 13:57 General Adult HPI - General Chief complaint: ED Chest Pain Stated complaint: Hypertension Time Seen by Provider: 09/07/17 10:01 Source: patient Limitations: no limitations - History of Present Illness Pain Scale: 1 - Related Data Home Medications Medication Instructions Recorded Confirmed Albuterol Sulfate [Albuterol 1 - 2 puff IH Q4H PRN 08/31/15 08/27/17 Inhaler] Losartan/Hydrochlorothiazide 1 tab PO DAILY 08/31/15 08/27/17 [Hyzaar 100-25 Tablet] Torsemide [Demadex] 10 mg PO DAILY PRN 08/31/15 08/27/17 clonazePAM [Klonopin] 0.5 mg PO BID PRN 08/31/15 08/27/17 Cholecalciferol (Vitamin D3) 10,000 unit PO TH 02/05/16 08/27/17 [Vitamin D3] Spironolactone [Aldactone] 25 mg PO DAILY 02/05/16 08/27/17 amLODIPine [Norvasc] 10 mg PO DAILY 02/05/16 08/27/17 cloNIDine HCl [Clonidine HCl] 0.2 mg PO 1-3XD 08/22/16 08/27/17 Ondansetron ODT [Zofran ODT] 4 mg SL Q6HR PRN 01/15/17 08/27/17 Previous Rx's Medication Instructions Recorded Carvedilol [Coreg] 25 mg PO BIDWM #60 tab 12/11/16 Hydralazine HCl 50 mg PO Q8H #90 tablet 12/11/16 Allergies Allergy/AdvReac Type Severity Reaction Status Date / Time morphine Allergy Difficulty Verified 08/27/17 22:06 Breathing nalbuphine [From Nubain] Allergy Difficulty Verified 08/27/17 22:06 Breathing Trimethobenzamide Allergy Hives Verified 08/27/17 22:06 [From Tigan] Constitutional: Denies: fever, chills ENT ED: Denies: congestion Cardiovascular: Reports: chest pain, palpitations Respiratory: Denies: cough, dyspnea Gastrointestinal: Denies: abdominal pain, nausea, vomiting Genitourinary: Denies: urgency, dysuria Musculoskeletal: Denies: back pain, neck pain Integumentary: Denies: rash, abrasion Neurological: Denies: headache, weakness Past Medical History - Past Medical History Medical history: Reports: arthritis, asthma, cardiomyopathy, COPD, hypertension , other Surgical history: Reports: hysterectomy Psychiatric history: Reports: anxiety 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 - Social History Smoking Status: Never smoker Smokeless Tobacco Status: No Alcohol use: Reports: rarely Drug use: Reports: none Physical Exam - General Limitations: no limitations General appearance: alert, in no apparent distress, obese (Morbidly) Course Vital Signs Temperature 98.2 F 09/07/17 10:03 Pulse Rate 87 09/07/17 10:03 Respiratory Rate 18 09/07/17 10:03 Blood Pressure 194/138 09/07/17 10:03 O2 Sat by Pulse Oximetry 96 09/07/17 10:03 Temperature 98.2 F 09/07/17 10:07 Pulse Rate 89 09/07/17 13:50 Respiratory Rate 18 09/07/17 13:50 Blood Pressure 207/145 09/07/17 13:50 O2 Sat by Pulse Oximetry 95 09/07/17 13:50 Oxygen Delivery Oxygen Delivery Room Air Medical Decision Making - Lab Data Result diagrams: 09/07/17 10:27 09/07/17 10:27 Lab Results 09/07/17 09/07/17 09/07/17 Range/Units 10:27 10:27 10:27 WBC 8.0 (4.3-11.1) K/mcL RBC 4.86 (3.82-4.97) M/mcL Hgb 14.0 (11.5-15.4) g/dL Hct 41.4 (35.3-44.9) % MCV 85.2 (83.0-100.0) fL MCH 28.8 (28.0-33.3) pg MCHC 33.8 (31.6-35.5) g/dL RDW 14.2 (11.5-14.5) % Plt Count 361 (140-400) K/mcL MPV 9.8 (9.4-12.4) fL Immature Gran % 0.5 (0-4) % Seg Neutrophils % 65.4 % Lymphocytes % 26.4 % Monocytes % 4.0 % Eosinophils % 2.8 % Basophils % 0.9 % Neutrophils # 5.2 (1.6-8.9) K/mcL Lymphocytes # 2.1 (0.6-4.6) K/mcL Monocytes # 0.3 (0.0-1.3) K/mcL Eosinophils # 0.2 (0.0-0.6) K/mcL Basophils # 0.1 (0.0-0.2) K/mcL Sodium 136 (136-145) mEq/L Potassium 3.8 (3.5-5.1) mEq/L Chloride 103 (98-107) mEq/L Carbon Dioxide 25 (23-29) mEq/L BUN 15 (6-20) mg/dL Creatinine 0.64 (0.60-1.20) mg/dL Est GFR ( Amer) > 60 (> 60) Est GFR (Non-Af Amer) > 60 (> 60) BUN/Creatinine Ratio 23 (6-26) Glucose 105 (70-105) mg/dL Calculated Osmolality 283 (280-300) Calcium 9.3 (8.6-10.3) mg/dL Troponin I 0.03 (< 0.04) ng/mL B-Natriuretic Peptide 19 (Less than 100) pg/mL TSH 2.057 (0.340-5.600) mcIU/mL Urine Color (Yellow) Urine Clarity (Clear) Urine pH (5.0-8.0) pH Units Ur Specific Merrill (1.010-1.025) Urine Protein (Neg-Trace) mg/dL Urine Glucose (UA) (Normal) mg/dL Urine Ketones (Negative) mg/dL Urine Blood (Negative) Urine Nitrite (Negative) Urine Bilirubin (Negative) Urine Urobilinogen (Normal) mg/dL Ur Leukocyte Esterase (Negative) Urine Microscopic RBC (0-3) per hpf Urine Microscopic WBC (0-3) per hpf Ur Squamous Epith Cells (None-Few) per lpf Urine Bacteria (None-Few) per hpf Hyaline Casts (None-Few) per lpf Ur Culture Indicated? (NO) 09/07/17 Range/Units 10:40 WBC (4.3-11.1) K/mcL RBC (3.82-4.97) M/mcL Hgb (11.5-15.4) g/dL Hct (35.3-44.9) % MCV (83.0-100.0) fL MCH (28.0-33.3) pg MCHC (31.6-35.5) g/dL RDW (11.5-14.5) % Plt Count (140-400) K/mcL MPV (9.4-12.4) fL Immature Gran % (0-4) % Seg Neutrophils % % Lymphocytes % % Monocytes % % Eosinophils % % Basophils % % Neutrophils # (1.6-8.9) K/mcL Lymphocytes # (0.6-4.6) K/mcL Monocytes # (0.0-1.3) K/mcL Eosinophils # (0.0-0.6) K/mcL Basophils # (0.0-0.2) K/mcL Sodium (136-145) mEq/L Potassium (3.5-5.1) mEq/L Chloride (98-107) mEq/L Carbon Dioxide (23-29) mEq/L BUN (6-20) mg/dL Creatinine (0.60-1.20) mg/dL Est GFR ( Amer) (> 60) Est GFR (Non-Af Amer) (> 60) BUN/Creatinine Ratio (6-26) Glucose (70-105) mg/dL Calculated Osmolality (280-300) Calcium (8.6-10.3) mg/dL Troponin I (< 0.04) ng/mL B-Natriuretic Peptide (Less than 100) pg/mL TSH (0.340-5.600) mcIU/mL Urine Color Yellow (Yellow) Urine Clarity Clear (Clear) Urine pH 6.0 (5.0-8.0) pH Units Ur Specific Merrill 1.023 (1.010-1.025) Urine Protein Trace (Neg-Trace) mg/dL Urine Glucose (UA) Normal (Normal) mg/dL Urine Ketones Negative (Negative) mg/dL Urine Blood Negative (Negative) Urine Nitrite Positive A (Negative) Urine Bilirubin Negative (Negative) Urine Urobilinogen Normal (Normal) mg/dL Ur Leukocyte Esterase Small H (Negative) Urine Microscopic RBC 0-3 (0-3) per hpf Urine Microscopic WBC 15-30 H (0-3) per hpf Ur Squamous Epith Cells Many H (None-Few) per lpf Urine Bacteria Many H (None-Few) per hpf Hyaline Casts None Seen (None-Few) per lpf Ur Culture Indicated? NO. A (NO) Attestation Statement - Attestation Attestation: I, Damion Villafuerte DO, examined this patient [id number] and my medical decision-making was reviewed with Kelechi Sorenson DO , Resident Physician. I agree with the documented findings, disposition and treatment plan as described except to the extent set forth below. Please see my progress notes for details. 42-year-old female presents to the emergency room for evaluation of elevated blood pressure. Patient was at an outpatient screening evaluation with her perforator loader Dr. Zari Loaiza. During that evaluation the patient had an elevated blood pressure greater than 230 systolic. Patient was recommended to come to the emergency room for evaluation that time. Patient denied any chest pain shortness of breath headache vision changes nausea vomiting or diarrhea. Denies any fevers or chills. Denies any new medications travel outside the country or other medical problems at this point. Patient does not take any other medications. Physical exam shows a morbidly obese female resting comfortably in the bed no apparent distress. Her lungs are clear heart is regular abdomen is soft nontender nondistended with no pulsatile masses or lesions noted at this point. Patient's blood pressure did resolve on arrival here. The presenting blood pressure is 170 systolic. Patient will be screened for the end organ dysfunction secondary to the elevated blood pressure including EKG troponin chest x-ray CBC chemistry urinalysis. Patient will be provided and intervention as needed. Patient does describe approximately 2 weeks ago a fall that was unbeknownst to her patient also describes some intermittent PVCs. Physical exam is unremarkable at this point but we will discuss the workup evaluation treatment course with the on-call perforator loader for their thoughts and recommendations. Otherwise the patient is clinically stable. Disposition pending the full workup treatment course evaluation. See detailed documentation of the physical exam, medical intervention, medical decision-making and disposition in the resident physician's note. No critical care applied this patient's treatment course at this time. 1300 Labs are unremarkable this time. A lengthy discussion was had with the perforator loader Dr. Zari Loaiza. She is concerned because a context of the possible syncopal event 2 weeks ago as well as the elevated blood pressure found here today. Patient also has a history of PVCs. Because of the complaint as well as the constitution of the symptoms at this point the patient will be admitted to the hospital with a nicardipine drip to bring the systolic and diastolic blood pressure down appropriately at this point. Patient is otherwise asymptomatic. She will be given antibiotics for the urinary tract infection and then admitted to the hospital for definitive management. See detailed conversation the hospitalist along with the recommendation of the resident physician's note. 35 minutes critical care will be applied secondary to the metacarpal drip for blood pressure control and the multi-disciplinary medical intervention provided. Admission process completed this time. Patient is otherwise stable. Patient will be admitted for further management
[2017-09-07 12:37] LABS: Thyroid Stimulating Hormone 2.057 mcIU/mL (0.340-5.600)
[2017-09-07] MEDS ORDERED: Ondansetron 4 MG/2 ML VIAL IVP ONE (13:07)
[2017-09-07] MEDS ORDERED: cefTRIAXone 2,000 MG in Water for inj. (sterile) 20 ML 20 ML IVP ONE (13:25)
[2017-09-07] MEDS: niCARdipine 40 MG/200 ML MLS IVC SCH ×2 (13:53→22:47)
[2017-09-07] MEDS ORDERED: clonazePAM 0.5 MG TABLET PO PRN (15:38)
[2017-09-07] MEDS ORDERED: Ondansetron ODT 4 MG TAB.RAPDIS SL PRN (15:38)
[2017-09-07] MEDS ORDERED: TORSEMIDE 10 MG PO PRN (15:38)
[2017-09-07] MEDS ORDERED: traMADol 50 MG TABLET PO PRN (15:40)
[2017-09-07] MEDS ORDERED: Naloxone 0.4 MG/ML INJ IVP PRN (15:40)
[2017-09-07] MEDS ORDERED: Acetaminophen 325 MG TABLET PO PRN (15:40)
[2017-09-07] MEDS ORDERED: NON-FORMULARY MEDICATION 1 EACH EACH (Clonidine Hcl [Clonidine Hcl] 0.2 MG) PO SCH (15:45)
--- NOTE | 2017-09-07 15:54 | Internal Med History&Physical ---
<Haider Rao - Last Filed: 09/07/17 16:38> Date of Encounter: 09/07/17 Time of Encounter: 15:52 Internal Medicine - H&P: HPI Admitted From: Home Plans for Post Hospital Care: Home History of present illness: 42-year-old female presents to the emergency room for evaluation of elevated blood pressure. Patient was at an outpatient screening evaluation with her cylinder inspector and tester Dr. Zari Loaiza. During that evaluation the patient had an elevated blood pressure greater than 230 systolic. Patient was recommended to come to the emergency room for evaluation that time. Patient denied any chest pain shortness of breath headache vision changes nausea vomiting or diarrhea. Denies any fevers or chills. Denies any new medications travel outside the country or other medical problems at this point. Patient does not take any other medications. Physical exam shows a morbidly obese female resting comfortably in the bed no apparent distress. Her lungs are clear heart is regular abdomen is soft nontender nondistended with no pulsatile masses or lesions noted at this point. Patient's blood pressure did resolve on arrival here. The presenting blood pressure is 170 systolic. At the ED, Cardizem drip was started, blood pressure was controlled with systolic BP at 160. Her labs are unremarkable except the UTI. She will be admitted as observation for further management. Past Med Surg Social Fam HX - Past Medical History Medical history: arthritis, asthma, cardiomyopathy, COPD, hypertension, other Psychiatric history: anxiety - Past Surgical History Surgical History: hysterectomy - Social History Smoking Status: Never smoker Smokeless Tobacco Status: No Alcohol use: rarely Drug use: none - Family History Mother Adopted: No Living Status: Still Living Hx Family Respiratory Disorders: Yes (Asthma) Father Adopted: No Living Status: Hx Family Cardiac Disorders: Yes (Father had "heart attack" at his 35 yo) Internal Medicine - H&P: Meds Albuterol Sulfate [Albuterol Inhaler] 1 - 2 puff IH Q4H PRN 08/31/15 [History] Losartan/Hydrochlorothiazide [Hyzaar 100-25 Tablet] 1 tab PO DAILY 08/31/15 [ History] Torsemide [Demadex] 10 mg PO DAILY PRN 08/31/15 [History] clonazePAM [Klonopin] 0.5 mg PO BID PRN 08/31/15 [History] Cholecalciferol (Vitamin D3) [Vitamin D3] 10,000 unit PO TH 02/05/16 [History] Spironolactone [Aldactone] 25 mg PO DAILY 02/05/16 [History] amLODIPine [Norvasc] 10 mg PO DAILY 02/05/16 [History] cloNIDine HCl [Clonidine HCl] 0.2 mg PO 1-3XD 08/22/16 [History] Carvedilol [Coreg] 25 mg PO BIDWM #60 tab 12/11/16 [Rx] Hydralazine HCl 50 mg PO Q8H #90 tablet 12/11/16 [Rx] Ondansetron ODT [Zofran ODT] 4 mg SL Q6HR PRN 01/15/17 [History] 3 Allergy/AdvReac Type Severity Reaction Status Date / Time morphine Allergy Difficulty Verified 08/27/17 22:06 Breathing nalbuphine [From Nubain] Allergy Difficulty Verified 08/27/17 22:06 Breathing Trimethobenzamide Allergy Hives Verified 08/27/17 22:06 [From Tigan] All Systems PM: A 10-system review of systems was performed and is negative for pertinent findings except as documented above in the HPI. Review of systems: REVIEW OF SYSTEMS: CONSTITUTIONAL: No weight loss, fever, chills, weakness or fatigue. HEENT: Eyes: No visual loss, blurred vision, double vision or yellow sclerae. Ears, Nose, Throat: No hearing loss, sneezing, congestion, runny nose or sore throat. SKIN: No rash or itching. CARDIOVASCULAR: No chest pain, chest pressure or chest discomfort. No palpitations or edema. RESPIRATORY: No shortness of breath, cough or sputum. GASTROINTESTINAL: No anorexia, nausea, vomiting or diarrhea. No abdominal pain or blood. GENITOURINARY: No dysuria, urgency, or frequency. NEUROLOGICAL: No headache, dizziness, syncope, paralysis, ataxia, numbness or tingling in the extremities. No change in bowel or bladder control. MUSCULOSKELETAL: No muscle, back pain, joint pain or stiffness. HEMATOLOGIC: No anemia, bleeding or bruising. LYMPHATICS: No enlarged nodes. No history of splenectomy. PSYCHIATRIC: No history of depression or anxiety. ENDOCRINOLOGIC: No reports of sweating, cold or heat intolerance. No polyuria or polydipsia. - Constitutional Vitals: Temp Pulse Resp BP Pulse Ox 98.2 F 88 16 151/98 98 09/07/17 10:07 09/07/17 15:32 09/07/17 15:32 09/07/17 15:32 09/07/17 15:32 General appearance: Present: A&O X 3 Exam: PHYSICAL EXAMINATION: GENERAL APPEARANCE: The patient is alert, oriented and in no acute distress. HEENT: Head is normocephalic. The sinuses are nontender. Pupils are equal and reactive. The nares are patent. Oropharynx clear without lesions. NECK: Supple without lymphadenopathy. HEART: Regular rate and rhythm. LUNGS: No crackles or wheezes are heard. ABDOMEN: Soft, nontender, nondistended with good bowel sounds heard. Inguinal area is normal. EXTREMITIES: Without cyanosis, clubbing or edema. NEUROLOGICAL: Gross nonfocal. SKIN: Warm and dry without any rash. Internal Med - H&P Results - Labs CBC & Chem 7: 09/07/17 10:27 09/07/17 10:27 Labs: Short CBC 09/07/17 Range/Units 10:27 WBC 8.0 (4.3-11.1) K/mcL Hgb 14.0 (11.5-15.4) g/dL Hct 41.4 (35.3-44.9) % Plt Count 361 (140-400) K/mcL Neutrophils # 5.2 (1.6-8.9) K/mcL BMP 09/07/17 10:27 Sodium 136 Potassium 3.8 Chloride 103 Carbon Dioxide 25 BUN 15 Creatinine 0.64 Glucose 105 Calcium 9.3 Cardiac Enzymes 09/07/17 Range/Units 10:27 Troponin I 0.03 (< 0.04) ng/mL Urine 09/07/17 Range/Units 10:40 Urine Color Yellow (Yellow) Urine Clarity Clear (Clear) Urine pH 6.0 (5.0-8.0) pH Units Ur Specific Brilliant 1.023 (1.010-1.025) Urine Protein Trace (Neg-Trace) mg/dL Urine Glucose (UA) Normal (Normal) mg/dL - Impressions ITS Impressions Chest X-Ray 09/07/17 10:11 IMPRESSION: No acute process. D/ / Hang Rahman MD / Hang Rahman MD Interpreting Provider: Hang Rahman MD - Assessment and plan (1) Hypertensive emergency Current Visit: Yes Status: Acute Assessment and plan: 42 year female with history of resistant hypertension presented with hypertensive emergency. - pt follows up with Dr. Loaiza, has undergone extensive hypertensive workup in the past, including blood free cortisol, TSH, renin, aldosterone, and a serum and urine metanephrine, which all received normal results. Patient was discussed with Dr. Loaiza about possible renal artery denervation procedure. Dr. Loaiza planned patient to be referred to [facility] for BP study. - Patient has history of sleep apnea, she did not wear CPAP recently, which could be the trigger for hypertensive emergency. will continue CPAP. - Patient was instructed for weight control. - Low-salt diet. - BP was under control with nicardipine drip, meds were continued except HCTZ was changed to chlorthalidone, coreg dose doubled. - Cardiology was consulted. (2) Morbid obesity Current Visit: No Status: Acute Assessment and plan: - Weight loss discussed with patient (3) Vitamin D deficiency Current Visit: No Status: Chronic Assessment and plan: - Continue home medications. (4) Asthma Current Visit: No Status: Chronic Assessment and plan: - Symptoms pretty, continue home medications. Qualifiers: Asthma severity: unspecified severity Asthma complication type: uncomplicated Qualified Code(s): J45.909 - Unspecified asthma, uncomplicated (5) Obstructive sleep apnea of adult Current Visit: No Status: Chronic Assessment and plan: - Continue CPAP. (6) Urinary tract infection Current Visit: Yes Status: Acute Assessment and plan: - Received 1 dose of IV Rocephin at ED, continue IV Rocephin for 2 more days. - urine cx pending. Qualifiers: Urinary tract infection type: site unspecified Hematuria presence: without hematuria Qualified Code(s): N39.0 - Urinary tract infection, site not specified - Time Spent With Patient Total time spent is greater than 50% in coordination of care (as documented) at patient's floor/unit and/or counseling patient: Greater than 35 minutes <Zarina Campo - Last Filed: 09/07/17 17:15> Date of Encounter: 09/07/17 Internal Medicine - H&P: HPI History of present illness: Ms. Dewitt is a 42 year old female All Systems PM: A 10-system review of systems was performed and is negative for pertinent findings except as documented above in the HPI. - Constitutional Vitals: Temp Pulse Resp BP Pulse Ox 98.2 F 93 15 150/95 96 09/07/17 10:07 09/07/17 16:25 09/07/17 16:25 09/07/17 16:25 09/07/17 16:25 Internal Med - H&P Results - Labs CBC & Chem 7: 09/07/17 10:27 09/07/17 10:27 - Attending Attestation Patient examined. Review of the notes. Patient had severe headache almost 8 x 10. Hypertensive emergency workup will be done to rule out end organ damage. CT brain without contrast ordered, urinalysis with trace protein but suggestive of UTI, initial troponin negative. 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 Cardene drip is still in continuation. Correlate dose increase 50 mg by mouth twice a day and changed the diuretic to chlorthalidone. Serial cardiac enzymes and Echocardiogram will be ordered. Will also treat UTI with antibiotic and urine culture ordered. Consulted cylinder inspector and tester. Will also consult safety clothing and equipment developer if needed. - Assessment and plan (1) Morbid obesity Current Visit: No Status: Acute (2) Hypertensive emergency Current Visit: Yes Status: Acute (3) Vitamin D deficiency Current Visit: No Status: Chronic (4) Asthma Current Visit: No Status: Chronic Qualifiers: Asthma severity: unspecified severity Asthma complication type: uncomplicated Qualified Code(s): J45.909 - Unspecified asthma, uncomplicated (5) Obstructive sleep apnea of adult Current Visit: No Status: Chronic (6) Urinary tract infection Current Visit: Yes Status: Acute Qualifiers: Urinary tract infection type: site unspecified Hematuria presence: without hematuria Qualified Code(s): N39.0 - Urinary tract infection, site not specified - Time Spent With Patient Total time spent is greater than 50% in coordination of care (as documented) at patient's floor/unit and/or counseling patient:
[2017-09-07] MEDS: hydrALAZINE 25 MG TABLET PO SCH ×2 (17:57→20:52)
[2017-09-07] MEDS: *HR* Heparin 5,000 UNIT/ML VIAL SQ SCH (18:08)
[2017-09-07] MEDS: cloNIDine HCl 0.1 MG TABLET PO SCH ×2 (19:04→20:52)
[2017-09-07] MEDS ORDERED: 0.9 % Sodium Chloride 250 ML ONE (22:35)
[2017-09-08 03:42] LABS: Basophils # 0.1 K/mcL (0.0-0.2); Eosinophils # 0.3 K/mcL (0.0-0.6); Eosinophils % 3.4 %; Hematocrit 33.8 % (35.3-44.9); Immature Granulocytes % 0.5 % (0-4); Lymphocytes # 2.4 K/mcL (0.6-4.6); Mean Corpuscular HGB Conc 33.4 g/dL (31.6-35.5); Mean Corpuscular Hemoglobin 28.3 pg (28.0-33.3); Mean Corpuscular Volume 84.5 fL (83.0-100.0); Mean Platelet Volume 9.8 fL (9.4-12.4); Monocytes # 0.5 K/mcL (0.0-1.3); Monocytes % 6.5 %; Neutrophils # 4.5 K/mcL (1.6-8.9); Platelet Count 339 K/mcL (140-400); Red Cell Distribution Width 14.3 % (11.5-14.5); Segmented Neutrophils % 57.6 %
[2017-09-08 03:47] LABS: Hemoglobin 11.3 g/dL (11.5-15.4)
[2017-09-08 04:03] LABS: BUN/Creatinine Ratio 21 (6-26); Blood Urea Nitrogen 16 mg/dL (6-20); Calcium 8.9 mg/dL (8.6-10.3); Carbon Dioxide 26 mEq/L (23-29); Chloride 103 mEq/L (98-107); Glucose 119 mg/dL (70-105); Osmolality,Calculated 284 (280-300); Potassium 3.3 mEq/L (3.5-5.1); Sodium 136 mEq/L (136-145); eGFR For African Americans > 60 (> 60); eGFR For Non-African Americans > 60 (> 60)
[2017-09-08] MEDS: *HR* Heparin 5,000 UNIT/ML VIAL SQ SCH (06:36)
[2017-09-08] MEDS ORDERED: Perflutren Lipid Microsphere 1.3 ML in 0.9 % Sodium Chloride 8.7 ML IVP ONE (07:46)
[2017-09-08] MEDS ORDERED: Perflutren Lipid Microsphere 2 ML VIAL ONE (08:04)
[2017-09-08] MEDS: cloNIDine HCl 0.1 MG TABLET PO SCH (08:34)
[2017-09-08] MEDS: hydrALAZINE 25 MG TABLET PO SCH (08:34)
[2017-09-08] MEDS ORDERED: amLODIPine 5 MG TABLET PO SCH (09:00)
[2017-09-08] MEDS ORDERED: cefTRIAXone 2,000 MG in Water for inj. (sterile) 20 ML 20 ML IVP SCH (09:00)
[2017-09-08] MEDS ORDERED: Spironolactone 25 MG TABLET PO SCH (09:00)
[2017-09-08 11:57] VITALS: BP 120/84
--- NOTE | 2017-09-08 14:52 | Discharge Summary ---
- NOTES TO OUTPATIENT PROVIDER Notes to Outpatient Provider: none Date of Encounter: 09/08/17 Time of Encounter: 11:00 - Discharge Diagnosis (1) Morbid obesity Priority: Secondary Status: Acute (2) Hypertensive emergency Priority: Primary Status: Acute (3) Vitamin D deficiency Priority: Secondary Status: Chronic (4) Asthma Priority: Secondary Status: Chronic Qualifiers: Asthma severity: unspecified severity Asthma complication type: uncomplicated Qualified Code(s): J45.909 - Unspecified asthma, uncomplicated (5) Obstructive sleep apnea of adult Priority: Secondary Status: Chronic (6) Urinary tract infection Priority: Secondary Status: Acute Qualifiers: Urinary tract infection type: site unspecified Hematuria presence: without hematuria Qualified Code(s): N39.0 - Urinary tract infection, site not specified Hospital course: Patient is a 42-year-old female with past medical history significant for hypertension, cardiomyopathy and COPD who presents to the ER on 09/07/17 due to elevated blood pressures. Patient was at an outpatient screening evaluation with her motor operator Dr. Zari Loaiza. During that evaluation the patient had an elevated blood pressure greater than 230 systolic. Patient was recommended to come to the emergency room for evaluation that time. In the ER, Cardizem drip was started, blood pressure was controlled with systolic BP at 160. Patient admitted as observation for further management. During patients hospital stay her blood pressures remained stable on blood pressure medications. Patient was also determined not to have a UTI due to being asymptomatic. Patient will be discharged to follow-up with motor operator and primary care provider for continued hypertension management. - Time Spent with Patient Total time spent providing and/or coordinating discharge services: - Discharge Medications Prescriptions: Carvedilol [Coreg] 50 mg PO BID #120 tablet Chlorthalidone 50 mg PO DAILY #60 tablet Losartan Potassium [Cozaar] 100 mg PO DAILY #30 tab Home Medications: Albuterol Sulfate [Albuterol Inhaler] 1 - 2 puff IH Q4H PRN 08/31/15 [History] Torsemide [Demadex] 10 mg PO DAILY PRN 08/31/15 [History] clonazePAM [Klonopin] 0.5 mg PO BID PRN 08/31/15 [History] Cholecalciferol (Vitamin D3) [Vitamin D3] 10,000 unit PO TH 02/05/16 [History] Spironolactone [Aldactone] 25 mg PO DAILY 02/05/16 [History] amLODIPine [Norvasc] 10 mg PO DAILY 02/05/16 [History] cloNIDine HCl [Clonidine HCl] 0.2 mg PO 1-3XD 08/22/16 [History] Hydralazine HCl 50 mg PO Q8H #90 tablet 12/11/16 [Rx] Ondansetron ODT [Zofran ODT] 4 mg SL Q6HR PRN 01/15/17 [History] Carvedilol [Coreg] 50 mg PO BID #120 tablet 09/08/17 [Rx] Chlorthalidone 50 mg PO DAILY #60 tablet 09/08/17 [Rx] Losartan Potassium [Cozaar] 100 mg PO DAILY #30 tab 09/08/17 [Rx] Allergies/Adverse Reactions: 3 Allergy/AdvReac Type Severity Reaction Status Date / Time morphine Allergy Difficulty Verified 08/27/17 22:06 Breathing nalbuphine [From Nubain] Allergy Difficulty Verified 08/27/17 22:06 Breathing Trimethobenzamide Allergy Hives Verified 08/27/17 22:06 [From Tigan] Date of admission: 09/07/17 17:05 Primary care physician: Fermin Qureshi DO - Constitutional Vitals: Temp Pulse Resp BP Pulse Ox 97.4 F L 62 18 120/84 92 09/08/17 11:55 09/08/17 11:55 09/08/17 11:55 09/08/17 11:55 09/08/17 11:55 General appearance: Present: A&O X 3, no acute distress - Respiratory Respiratory exam: Present: CTAB. Absent: accessory muscle use, rales, rhonchi, wheezes - Cardiovascular Cardiovascular exam: Present: RRR, +S1, +S2. Absent: diastolic murmur, gallop, rubs, systolic murmur - Patient Status Disposition: Home, Self-Care Condition: Fair - Discharge Instructions Instructions: Chlorthalidone (By mouth), Losartan (By mouth), Carvedilol (By mouth), Chronic Hypertension (DC) Follow Up With: Fermin Qureshi DO [Primary Care Provider] -
[2017-09-08] MEDS ORDERED: CHOLECALCIFEROL PO SCH (15:38)
--- NOTE | 2017-09-09 19:37 | Electrocardiograph Report ---
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
== END 2017-09-08 15:39 | disposition home or self-care (01) ==
LOC: 2SOUTHHOLD 10:00 → EMEROO 10:00 → 2SOUTHHOLD 17:11
PROVIDERS: ADMIT Student in an Organized Health Care Education/Training Program; ATTEND Registered Nurse